=== PATIENT | female | born 1960 | race Caucasian/White ===

== ENCOUNTER 2017-02-10 11:19 | Inpatient (IN) | payer OTHER ==
[2017-02-10 12:21] VITALS: BMI 23.3
--- NOTE | 2017-02-10 14:04 | HP ---
COWS - Scale Resting Pulse: 0= [place] 80 or Below Sweatin=Flushed/Facial Moisture Restless Observation: 3= Extraneous Movement Pupil Size: 2= Moderately Dilated Bone or Joint Aches: 2= Severe Diffuse Aches Runny Nose/ Eye Tearin= Runny Nose/Eyes GI Upset > 30mins: 3= Vomiting/Diarrhea Tremor Observation: 2= Slight Tremor Visible Yawning Observation: 1= 1-2x During Session Anxiety or Irritability: 2=Irritable/Anxious Goose Flesh Skin: 0=Smooth Skin COWS Score: 19 CIWA Score - CIWA Score Nausea/Vomitin Muscle Tremors: 3 Anxiety: 3 Agitation: 3 Paroxysmal Sweats: 2 Orientation: 0-Oriented Tacttile Disturbances: 2-Mild Itch/Numbness/Burn Auditory Disturbances: 2-Mild Harshness/Frighten Visual Disturbances: 2-Mild Sensitivity Headache: 2-Mild CIWA-Ar Total Score: 22 Admission ROS BHS - HPI Chief Complaint: i need help to stop using heroin and xanax Allergies/Adverse Reactions: Allergies Allergy/AdvReac Type Severity Reaction Status Date / Time Penicillins Allergy Severe Hives Verified 02/10/17 13:57 History of Present Illness: this 57 years old female with heroin and xanax dpendence,withdrawal symptom, last detox [facility] 12/02 schizoaffective disorder asthma hepatitis c nicotine dependence longest period of sobriety 5 years Exam Limitations: No Limitations - Ebola screening Have you traveled outside of the country in the last 21 days: No Have you been sick,other than usual withdrawal symptoms: No - Review of Systems Constitutional: Chills, Diaphoresis, Loss of Appetite, Malaise, Night Sweats, Changes in sleep, Weakness, Unexplained wgt Loss EENT: reports: Tearing, Nose Congestion Respiratory: reports: No Symptoms reported, Other (asthma) Cardiac: reports: Palpitations GI: reports: Diarrhea, Nausea, Poor Appetite, Vomiting, Abdominal cramping : reports: No Symptoms Reported Musculoskeletal: reports: Back Pain, Joint Pain, Muscle Pain, Joint Stiffness Integumentary: reports: Dryness Endocrine: reports: No Symptoms Reported Hematology: reports: No Symptoms Reported Psychiatric: reports: other (schzoaffective disorder) Patient History - Patient Medical History Hx Anemia: Yes (IRON SUPPLEMENTS IN THE PAST, LAST DOSE FEW MONTHS AGO) Hx Asthma: Yes (ON MDI) Hx Chronic Obstructive Pulmonary Disease (COPD): No Hx Cancer: No Hx Cardiac Disorders: No Hx Congestive Heart Failure: No Hx Hypertension: No Hx Hypercholesterolemia: No Hx Pacemaker: No HX Cerebrovascular Accident: No Hx Seizures: No Hx Dementia: No Hx Diabetes: No Hx Gastrointestinal Disorders: No Hx Liver Disease: No Hx Genitourinary Disorders: No Hx Sexually Transmitted Disorders: No Hx Renal Disease (ESRD): No Hx Thyroid Disease: No Hx Human Immunodeficiency Virus (HIV): No (NEGATIVE HX) Hx Hepatitis C: Yes (under the care of pmd) Hx Depression: Yes Hx Suicide Attempt: No (denies) Hx Bipolar Disorder: No Hx Schizophrenia: Yes Other Medical History: no suicidal,no homicidal - Patient Surgical History Past Surgical History: Yes Hx Neurologic Surgery: No Hx Cataract Extraction: No Hx Cardiac Surgery: No Hx Lung Surgery: No Hx Breast Surgery: No Hx Breast Biopsy: No Hx Abdominal Surgery: No Hx Appendectomy: No Hx Cholecystectomy: No Hx Genitourinary Surgery: No Hx Section: Yes (x 1987) Hx Orthopedic Surgery: No Hx Hysterectomy: No Other Surgical History: surgery for bunion of right foot in 2008 Anesthesia Reaction: No - PPD History Previous Implant?: Yes Documented Results: Negative w/proof Implanted On Prior R Admission?: Yes Date: 04/13/16 Results: 0 mm PPD to be Administered?: No - Reproductive History Patient is a Female of Child Bearing Age (11 -55 yrs old): Yes Last Menstrual Period: 05/30/13 Patient : No - Smoking Cessation Smoking history: Current every day smoker Have you smoked in the past 12 months: Yes Aproximately how many cigarettes per day: 6 Hx Chewing Tobacco Use: No Initiated information on smoking cessation: Yes 'Breaking Loose' booklet given: 02/10/17 - Substance & Tx. History Hx Alcohol Use: No Hx Substance Use: Yes Substance Use Type: Heroin, Tranquilizers Hx Substance Use Treatment: Yes (last 12/02 [facility]) Family Disease History - Family Disease History Family Disease History: Diabetes: Mother (CANCER, L[place]MPHOMA, ), [place]: Mother Admission Physical Exam BHS - Vital Signs Vital Signs: Vital Signs - 24 hr 02/10/17 12:17 Temperature 97.6 F Pulse Rate 63 Respiratory 18 Rate Blood Pressure 108/72 - Physical General Appearance: Yes: Moderate Distress, Tremorous, Irritable, Sweating, Anxious HEENTM: Yes: Within Normal Limits, Normal ENT Inspection, Pharynx Normal, Nasal Congestion, Rhinorrhea Respiratory: Yes: No Respiratory Distress, Wheezing Neck: Yes: Within Normal Limits, Supple, Trachea in good position Breast: Yes: Breast Exam Deferred Cardiology: Yes: Within Normal Limits, Regular Rhythm, Regular Rate, S1, S2 Abdominal: Yes: Within Normal Limits, Normal Bowel Sounds, Non Tender, Flat, Soft Genitourinary: Yes: Within Normal Limits Back: Yes: Muscle Spasm Musculoskeletal: Yes: Within Normal Limits, Back pain, Joint Stiffness, Muscle Pain Extremities: Yes: Within Normal Limits, Normal Range of Motion, Tremors Neurological: Yes: 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 intact, Alert, Motor Strength 5/5 Integumentary: Yes: Dry Lymphatic: Yes: Within Normal Limits - Diagnostic (1) Nicotine dependence Current Visit: No Status: Acute Qualifiers: Nicotine product type: cigarettes Substance use status: uncomplicated Qualified Code(s): F17.210 - Nicotine dependence, cigarettes, uncomplicated (2) Opioid dependence with withdrawal Current Visit: No Status: Acute (3) Schizoaffective disorder Current Visit: No Status: Acute Comment: ZYPREX (4) Bronchial asthma Current Visit: No Status: Chronic Qualifiers: Asthma severity: unspecified severity Asthma complication type: uncomplicated Qualified Code(s): J45.909 - Unspecified asthma, uncomplicated (5) Hepatitis C carrier Current Visit: No Status: Chronic (6) Uncomplicated sedative, hypnotic, or anxiolytic withdrawal Current Visit: Yes Status: Acute (7) Weight loss Current Visit: Yes Status: Acute (8) Anemia Current Visit: Yes Status: Acute Cleared for Admission [facility] - Detox or Rehab [facility] Level of Care: Medically Managed [facility] Breath Alcohol Content Breath Alcohol Content: 0 Urine Pregancy Test - Result Urine Test Results: Negative- NO Line Present Urine Drug Screen - Results Drug Screen Negative: No Urine Drug Screen Results: RUBÉN-Cocaine, OPI-Opiates, BZO-Benzodiazepines, MTD- Methadone
[2017-02-10] MEDS ORDERED: MAGNESIUM HYDROX 2400MG/30ML ORAL SUSPENSION 30 ML CUP PO PRN (14:14)
[2017-02-10] MEDS ORDERED: MAG HYDROX/AL HYDROX/SIMETH 30 ML UNIT-DOSE CUP PO PRN (14:14)
[2017-02-10] MEDS ORDERED: diphenhydrAMINE HCL 50 MG CAPSULE PO PRN (14:14)
[2017-02-10] MEDS ORDERED: P-EPHED 60MG/TRIPROLIDI 2.5MG TABLET PO PRN (14:14)
[2017-02-10] MEDS ORDERED: IBUPROFEN 400 MG TABLET (FP) PO PRN (14:14)
[2017-02-10] MEDS ORDERED: hydrOXYzine PAMOATE 25 MG CAPSULE (FP) PO PRN (14:14)
[2017-02-10] MEDS ORDERED: ACETAMINOPHEN 325 MG TABLET (FP) PO PRN (14:14)
[2017-02-10] MEDS ORDERED: MAGNESIUM CITRATE 300 ML BOTTLE PO PRN (14:14)
[2017-02-10] MEDS ORDERED: LOPERAMIDE HCL 2 MG CAPSULE PO PRN (14:14)
[2017-02-10] MEDS ORDERED: MENTHOL/PHENOL 1 EACH UD MM PRN (14:14)
[2017-02-10] MEDS ORDERED: ALBUTEROL SO4 6.7 GM HFA INHALER IH PRN (14:18)
[2017-02-10] MEDS ORDERED: diazePAM 5 MG TABLET PO ONE (15:03)
[2017-02-10] MEDS ORDERED: METHADONE HCL 10 MG TABLET (FOR DETOX USE ONLY) PO ONE ×2 (15:05→23:00)
[2017-02-10] MEDS: NICOTINE 7 MG/24 HOURS TOPICAL PATCH TD SCH (15:18)
--- NOTE | 2017-02-10 15:57 | EKG ---
Test Reason : Blood Pressure : / mmHG Vent. Rate : 058 BPM Atrial Rate : 058 BPM P-R Int : 156 ms QRS Dur : 084 ms QT Int : 436 ms P-R-T Axes : 069 063 060 degrees QTc Int : 428 ms SINUS BRADYCARDIA OTHERWISE NORMAL ECG NO PREVIOUS ECGS AVAILABLE Confirmed by TEGAN BOWMAN MD ([id number]) on 02/10/2017 3:57:00 PM Referred By: Confirmed By:TEGAN BOWMAN MD
[2017-02-10 19:26] LABS: HIV 1 & 2 AB NEGATIVE; HIV 1 AGp24 NEGATIVE
[2017-02-10] MEDS: diazePAM 5 MG TABLET PO PRN (19:41)
[2017-02-10 20:28] LABS: URINE APPEARANCE SLCLOUDY; URINE BILIRUBIN NEGATIVE (NEGATIVE); URINE BLOOD NEGATIVE (NEGATIVE); URINE COLOR YELLOW; URINE GLUCOSE (UA) NEGATIVE (NEGATIVE); URINE KETONE NEGATIVE (NEGATIVE); URINE LEUK ESTERASE NEGATIVE (NEGATIVE); URINE NITRITE NEGATIVE (NEGATIVE); URINE PROTEIN NEGATIVE (NEGATIVE); URINE UROBILINOGEN NEGATIVE E.U./dl (0.2-1.0)
[2017-02-10] MEDS: BUDESONIDE/FORMETEROL FUMARATE 160/4.5 mcg INHALER IH SCH (22:35)
[2017-02-10] MEDS: diazePAM 5 MG TABLET PO SCH (22:35)
[2017-02-10] MEDS: THIAMINE HCL 100 MG TABLET (FP) PO SCH (22:36)
[2017-02-11] MEDS: diazePAM 5 MG TABLET PO SCH ×3 (06:42→22:38)
[2017-02-11 09:46] LABS: MCH 29.2 pg (25.7-33.7); MCHC 33.2 g/dl (32.0-36.0); MEAN CELL VOLUME 88.1 fl (80-96); MEAN PLT VOLUME 10.3 fl (7.5-11.1); PLATELET COUNT 136 K/MM3 (134-434); RDW 14.3 % (11.6-15.6); WHITE BLOOD COUNT 5.5 K/mm3 (4.0-10.0)
[2017-02-11] MEDS ORDERED: METHADONE HCL 10 MG TABLET (FOR DETOX USE ONLY) PO SCH (10:00)
[2017-02-11] MEDS: guaiFENesin/D-METHORPHAN HB 10 ML UNIT-DOSE CUPS PO PRN (10:39)
[2017-02-11] MEDS: PRENATAL VITAMINS W/ FOLIC ACID TABLET (FP) PO SCH (10:40)
[2017-02-11] MEDS: diazePAM 5 MG TABLET PO PRN ×2 (10:40→18:31)
[2017-02-11] MEDS: NICOTINE 7 MG/24 HOURS TOPICAL PATCH TD SCH (10:40)
[2017-02-11] MEDS: BUDESONIDE/FORMETEROL FUMARATE 160/4.5 mcg INHALER IH SCH ×2 (10:40→22:31)
[2017-02-11 10:53] LABS: ALK PHOS 87 U/L (45-117); ANION GAP 9 (8-16); BILIRUBIN,TOTAL 0.4 mg/dL (0.2-1.0); CALCIUM 8.8 mg/dL (8.5-10.1); CO2 30 mmol/L (21-32); CREATININE 0.6 mg/dL (0.55-1.02); GLUCOSE,RANDOM 81 mg/dL (74-106); SGOT/AST 16 U/L (15-37); SGPT/ALT 17 U/L (12-78)
--- NOTE | 2017-02-11 12:31 | PN ---
S CIWA - CIWA Score Nausea/Vomitin Muscle Tremors: 3 Anxiety: 3 Agitation: 2 Paroxysmal Sweats: 3 Orientation: 0-Oriented Tacttile Disturbances: 2-Mild Itch/Numbness/Burn Auditory Disturbances: 0-None Visual Disturbances: 0-None Headache: 0-None Present CIWA-Ar Total Score: 15 BHS COWS - Scale Resting Pulse: 1= [place] 81-100 Sweatin=Flushed/Facial Moisture Restless Observation: 1= Difficult to Sit Still Pupil Size: 1= Pupils >than Normal Bone or Joint Aches: 2= Severe Diffuse Aches Runny Nose/ Eye Tearin= Nasal Congestion GI Upset > 30mins: 1= Stomach Cramp Tremor Observation of Outstretched Hands: 2= Slight Tremor Visible Yawning Observation: 1= 1-2x During Session Anxiety or Irritability: 2=Irritable/Anxious Goose Flesh Skin: 0=Smooth Skin COWS Score: 14 BHS Progress Note (SOAP) Subjective: interrupterd sleep, sweats, cough Objective: 02/11/17 12:30 Vital Signs Temperature 97.7 F 02/11/17 10:00 Pulse Rate 68 02/11/17 10:00 Respiratory Rate 18 02/11/17 10:00 Blood Pressure 104/62 02/11/17 10:00 O2 Sat by Pulse Oximetry (%) Laboratory Tests 02/10/17 02/10/17 02/11/17 13:00 20:19 06:20 WBC 5.5 RBC 4.58 Hgb 13.4 Hct 40.3 MCV 88.1 MCHC 33.2 RDW 14.3 Plt Count 136 MPV 10.3 Sodium Potassium Chloride Carbon Dioxide Anion Gap BUN Creatinine Creat Clearance w eGFR Random Glucose Calcium Total Bilirubin AST ALT Alkaline Phosphatase Total Protein Albumin Urine Color Yellow Urine Appearance Slcloudy Urine pH 5.0 Ur Specific [place] 1.023 Urine Protein Negative Urine Glucose (UA) Negative Urine Ketones Negative Urine Blood Negative Urine Nitrite Negative Urine Bilirubin Negative Urine Urobilinogen Negative Ur Leukocyte Esterase Negative RPR Titer HIV 1&2 Antibody Screen Negative HIV P24 Antigen Negative 02/11/17 02/11/17 06:20 06:20 WBC RBC Hgb Hct MCV MCHC RDW Plt Count MPV Sodium 143 Potassium 4.0 Chloride 104 Carbon Dioxide 30 Anion Gap 9 BUN 19 H Creatinine 0.6 Creat Clearance w eGFR > 60 Random Glucose 81 Calcium 8.8 Total Bilirubin 0.4 D AST 16 D ALT 17 Alkaline Phosphatase 87 Total Protein 7.0 Albumin 4.0 Urine Color Urine Appearance Urine pH Ur Specific [place] Urine Protein Urine Glucose (UA) Urine Ketones Urine Blood Urine Nitrite Urine Bilirubin Urine Urobilinogen Ur Leukocyte Esterase RPR Titer Nonreactive HIV 1&2 Antibody Screen HIV P24 Antigen pt aox3 in nad lying in bed + cough Assessment: 02/11/17 12:30 withdrawal sx's uri 03/26/17 17:24 Plan: cont. detox increase fluids robitussin dm
--- NOTE | 2017-02-11 15:02 | CONSULT ---
[facility] Psychiatric Consult - Data Date of interview: 02/11/17 Admission source: [facility] Identifying data: Another admission to [facility] for this 57 y/o female seeking detox treatment on for opioid and xanax dependence.Patient is ,a mother of one,homeless,unemployed and supported on SSI benefits. Substance Abuse History: - Smoking Cessation. Smoking history: Current every day smoker. Have you smoked in the past 12 months: Yes. Aproximately how many cigarettes per day: 6. Hx Chewing Tobacco Use: No. Initiated information on smoking cessation: Yes. 'Breaking Loose' booklet given: 02/10/17. - Substance & Tx. History. Hx Alcohol Use: No. Hx Substance Use: Yes. Substance Use Type : Heroin, Tranquilizers. Hx Substance Use Treatment: Yes (last 12/02 [facility]) Medical History: Anemia,hepatitis C,bronchial asthma and a history of bunionectomy in 2008. Psychiatric History: Patient presents with a 12-year history of psychiatric illness.Initially diagnosed with Schizophrenia until recent revison of diagnosis to Schizoaffective Disorder.Currently prescribed risperdal 2 mg/hs.Ms Jacobs is followed at the [facility] mental health clinic in [facility].History of multiple psychiatric hospitalizations ([facility], [facility]).No reported history of suicide attempts. Physical/Sexual Abuse/Trauma History: Patient denies. Additional Comment: Urine Drug Screen Results: RUBÉN-Cocaine, OPI-Opiates, BZO- Benzodiazepines, MTD-Methadone.Noted. Mental Status Exam - Mental Status Exam Alert and Oriented to: Time, Place, Person Cognitive Function: Good Patient Appearance: Well Groomed Mood: Hopeful, Euthymic Affect: Appropriate, Normal Range Patient Behavior: Appropriate, Cooperative Speech Pattern: Clear Voice Loudness: Normal Thought Process: Goal Oriented Thought Disorder: Not Present Hallucinations: Denies Suicidal Ideation: Denies Homicidal Ideation: Denies Insight/Judgement: Poor Sleep: Fair Appetite: Good Muscle strength/Tone: Normal Gait/Station: Normal Psychiatric Findings - Problem List ([place] 1, 2,3) (1) Uncomplicated sedative, hypnotic, or anxiolytic withdrawal Current Visit: Yes Status: Acute (2) Opioid dependence with withdrawal Current Visit: Yes Status: Acute (3) Nicotine dependence Current Visit: Yes Status: Acute Qualifiers: Nicotine product type: cigarettes Substance use status: uncomplicated Qualified Code(s): F17.210 - Nicotine dependence, cigarettes, uncomplicated (4) Drug-induced mood disorder Current Visit: Yes Status: Acute (5) Schizoaffective disorder Current Visit: Yes Status: Chronic Comment: ZYPREX (6) Anemia Current Visit: Yes Status: Chronic (7) Bronchial asthma Current Visit: Yes Status: Chronic Qualifiers: Asthma severity: unspecified severity Asthma complication type: uncomplicated Qualified Code(s): J45.909 - Unspecified asthma, uncomplicated (8) GERD (gastroesophageal reflux disease) Current Visit: Yes Status: Chronic Qualifiers: Esophagitis presence: without esophagitis Qualified Code(s): K21.9 - Gastro-esophageal reflux disease without esophagitis (9) Hepatitis C carrier Current Visit: Yes Status: Chronic - Initial Treatment Plan Initial Treatment Plan: Psychoeducation.Detoxification.Risperdal 2 mg po hs.Side effects/benefits discussed with the patient.She agrees with this careplan.Observation.
[2017-02-11] MEDS: THIAMINE HCL 100 MG TABLET (FP) PO SCH (22:31)
[2017-02-11] MEDS: risperiDONE 2 MG TABLET PO SCH (22:31)
--- NOTE | 2017-02-12 10:11 | PN ---
[facility] CIWA - CIWA Score Nausea/Vomitin-No Nausea/No Vomiting Muscle Tremors: 3 Anxiety: 3 Agitation: 3 Paroxysmal Sweats: 3 Orientation: 0-Oriented Tacttile Disturbances: 0-None Auditory Disturbances: 0-None Visual Disturbances: 0-None Headache: 0-None Present CIWA-Ar Total Score: 12 BHS COWS - Scale Resting Pulse: 0= [place] 80 or Below Sweatin= Chills/Flushing Restless Observation: 0= Sits Still Pupil Size: 0= Normal to Room Light Bone or Joint Aches: 1= Mild Discomfort Runny Nose/ Eye Tearin= Nasal Congestion GI Upset > 30mins: 1= Stomach Cramp Tremor Observation of Outstretched Hands: 2= Slight Tremor Visible Yawning Observation: 2= >3x During Session Anxiety or Irritability: 2=Irritable/Anxious Goose Flesh Skin: 0=Smooth Skin COWS Score: 10 S Progress Note (SOAP) Subjective: sweats interrupted sleep agitation Objective: 02/12/17 10:13 Vital Signs Temperature 97.5 F L 02/12/17 06:51 Pulse Rate 77 02/12/17 06:51 Respiratory Rate 18 02/12/17 06:51 Blood Pressure 122/79 02/12/17 06:51 O2 Sat by Pulse Oximetry (%) Laboratory Tests 02/10/17 02/10/17 02/11/17 13:00 20:19 06:20 WBC 5.5 RBC 4.58 Hgb 13.4 Hct 40.3 MCV 88.1 MCHC 33.2 RDW 14.3 Plt Count 136 MPV 10.3 Sodium Potassium Chloride Carbon Dioxide Anion Gap BUN Creatinine Creat Clearance w eGFR Random Glucose Calcium Total Bilirubin AST ALT Alkaline Phosphatase Total Protein Albumin Urine Color Yellow Urine Appearance Slcloudy Urine pH 5.0 Ur Specific [place] 1.023 Urine Protein Negative Urine Glucose (UA) Negative Urine Ketones Negative Urine Blood Negative Urine Nitrite Negative Urine Bilirubin Negative Urine Urobilinogen Negative Ur Leukocyte Esterase Negative RPR Titer HIV 1&2 Antibody Screen Negative HIV P24 Antigen Negative 02/11/17 02/11/17 06:20 06:20 WBC RBC Hgb Hct MCV MCHC RDW Plt Count MPV Sodium 143 Potassium 4.0 Chloride 104 Carbon Dioxide 30 Anion Gap 9 BUN 19 H Creatinine 0.6 Creat Clearance w eGFR > 60 Random Glucose 81 Calcium 8.8 Total Bilirubin 0.4 D AST 16 D ALT 17 Alkaline Phosphatase 87 Total Protein 7.0 Albumin 4.0 Urine Color Urine Appearance Urine pH Ur Specific [place] Urine Protein Urine Glucose (UA) Urine Ketones Urine Blood Urine Nitrite Urine Bilirubin Urine Urobilinogen Ur Leukocyte Esterase RPR Titer Nonreactive HIV 1&2 Antibody Screen HIV P24 Antigen awake/alert ambulating no acute distress Assessment: 02/12/17 10:13 withdrawal sx Plan: continue detox increase fluids
[2017-02-12] MEDS: diazePAM 5 MG TABLET PO SCH ×2 (10:28→22:34)
[2017-02-12] MEDS: PRENATAL VITAMINS W/ FOLIC ACID TABLET (FP) PO SCH (10:28)
[2017-02-12] MEDS: NICOTINE 7 MG/24 HOURS TOPICAL PATCH TD SCH (10:28)
[2017-02-12] MEDS: METHADONE HCL 5 MG TABLET (FOR DETOX USE ONLY) PO SCH (10:28)
[2017-02-12] MEDS: BUDESONIDE/FORMETEROL FUMARATE 160/4.5 mcg INHALER IH SCH ×2 (10:30→22:34)
[2017-02-12] MEDS: guaiFENesin/D-METHORPHAN HB 10 ML UNIT-DOSE CUPS PO PRN ×2 (12:15→22:36)
[2017-02-12] MEDS: diazePAM 5 MG TABLET PO PRN ×2 (12:34→17:56)
[2017-02-12] MEDS: risperiDONE 2 MG TABLET PO SCH (22:34)
[2017-02-12] MEDS: THIAMINE HCL 100 MG TABLET (FP) PO SCH (22:34)
[2017-02-13] MEDS: diazePAM 5 MG TABLET PO PRN (06:05)
--- NOTE | 2017-02-13 10:20 | PN ---
BHS Progress Note (SOAP) Subjective: sweats interrupted sleep tired Objective: 02/13/17 10:20 Vital Signs Temp 97.0 F L 02/13/17 06:00 Pulse 53 L 02/13/17 06:00 Resp 18 02/13/17 06:00 BP 111/65 02/13/17 06:00 Pulse Ox awake/alert ambulating no acute distress Assessment: 02/13/17 10:20 withdrawal sx Plan: continue detox increase fluids
[2017-02-13] MEDS: PRENATAL VITAMINS W/ FOLIC ACID TABLET (FP) PO SCH (10:45)
[2017-02-13] MEDS: METHADONE HCL 5 MG TABLET (FOR DETOX USE ONLY) PO SCH (10:45)
[2017-02-13] MEDS: diazePAM 5 MG TABLET PO SCH ×2 (10:45→22:26)
[2017-02-13] MEDS: BUDESONIDE/FORMETEROL FUMARATE 160/4.5 mcg INHALER IH SCH ×2 (10:45→22:25)
[2017-02-13] MEDS: NICOTINE 7 MG/24 HOURS TOPICAL PATCH TD SCH (10:47)
[2017-02-13] MEDS: guaiFENesin/D-METHORPHAN HB 10 ML UNIT-DOSE CUPS PO PRN (11:25)
[2017-02-13] MEDS ORDERED: diazePAM 5 MG TABLET PO ONE (15:00)
[2017-02-13] MEDS: risperiDONE 2 MG TABLET PO SCH (22:25)
[2017-02-13] MEDS: THIAMINE HCL 100 MG TABLET (FP) PO SCH (22:26)
[2017-02-14] MEDS ORDERED: METHADONE HCL 10 MG TABLET (FOR DETOX USE ONLY) PO SCH (10:00)
[2017-02-14] MEDS ORDERED: diazePAM 5 MG TABLET PO SCH (10:00)
[2017-02-14] MEDS: PRENATAL VITAMINS W/ FOLIC ACID TABLET (FP) PO SCH (10:41)
[2017-02-14] MEDS: NICOTINE 7 MG/24 HOURS TOPICAL PATCH TD SCH (10:42)
[2017-02-14] MEDS: BUDESONIDE/FORMETEROL FUMARATE 160/4.5 mcg INHALER IH SCH ×2 (10:42→22:22)
[2017-02-14] MEDS: guaiFENesin/D-METHORPHAN HB 10 ML UNIT-DOSE CUPS PO PRN (10:43)
--- NOTE | 2017-02-14 13:18 | PN ---
BHS Progress Note (SOAP) Subjective: ALERT,IRRITABLE,ANXIOUS,INTERRUPTED SLEEP,PAIN IN THE BODY Objective: 02/14/17 13:17 Vital Signs Temperature 97.9 F 02/14/17 10:01 Pulse Rate 80 02/14/17 10:01 Respiratory Rate 16 02/14/17 10:01 Blood Pressure 109/68 02/14/17 10:01 O2 Sat by Pulse Oximetry (%) Assessment: 02/14/17 13:17 WITHDRAWAL SYMPTOM Plan: CONTINUE DETOX
[2017-02-14] MEDS: THIAMINE HCL 100 MG TABLET (FP) PO SCH (22:21)
[2017-02-14] MEDS: risperiDONE 2 MG TABLET PO SCH (22:22)
[2017-02-15] MEDS ORDERED: METHADONE HCL 5 MG TABLET (FOR DETOX USE ONLY) PO SCH (06:00)
--- NOTE | 2017-02-15 08:14 | PN ---
[facility] Progress Note (SOAP) Subjective: ALERT,COUGHING,YELLOWISH MUCOUS, Objective: 02/15/17 08:11 Vital Signs Temperature 97.0 F L 02/15/17 06:14 Pulse Rate 67 02/15/17 06:14 Respiratory Rate 18 02/15/17 06:14 Blood Pressure 100/68 02/15/17 06:14 O2 Sat by Pulse Oximetry (%) Assessment: 02/15/17 08:11 LUNG MILD WHEEZING BRONCHITIS Plan: LEVAQUIN 500 JEYSON PO DAILY,ALBUTEROL INHALER PRN,TRANSFER TO REHAB [facility] FOR CONTINUING OF CARE
[2017-02-15] MEDS ORDERED: LEVOFLOXACIN 500 MG TABLET (FP) PO SCH (10:00)
[2017-02-15] MEDS: PRENATAL VITAMINS W/ FOLIC ACID TABLET (FP) PO SCH (10:42)
[2017-02-15] MEDS: BUDESONIDE/FORMETEROL FUMARATE 160/4.5 mcg INHALER IH SCH (10:42)
[2017-02-15] MEDS: NICOTINE 7 MG/24 HOURS TOPICAL PATCH TD SCH (10:42)
[2017-02-15 10:52] VITALS: BP 110/73; PULSE 78; TEMP 97.9
--- NOTE | 2017-02-15 11:14 | DS ---
[facility] Detox Discharge Summary Admission Date: 02/10/17 Discharge Date: 02/15/17 - History Present History: Opioid Dependence, Sedative Dependence Additional Comments: TRANSFER TO REHAB FOR CONTINUING OF CARE Pertinent Past History: ASTHMA SCHIZOAFFECTIV EDISORDER HEPATITIS C WEIGHT LOSS BRONCHITIS ANEMIA BY HISTORY - Physical Exam Results Vital Signs: Vital Signs Temperature 97.9 F 02/15/17 10:52 Pulse Rate 78 02/15/17 10:52 Respiratory Rate 18 02/15/17 10:52 Blood Pressure 110/73 02/15/17 10:52 O2 Sat by Pulse Oximetry (%) Pertinent Admission Physical Exam Findings: WITHDRAWAL SYMPTOM - Treatment Hospital Course: Detox Protocol Followed, Detoxed Safely, Responded well, Discharged Condition Good - Medication Discharge Medications: Ambulatory Orders Risperidone [Risperdal] 2 mg PO DAILY 07/04/16 Albuterol Sulfate Inhaler - [Ventolin HFA Inhaler -] 2 inh IH Q4H PRN #1 cartridge 07/09/16 Budesonide/Formeterol Fumarate [SYMBICORT 160/4.5mcg -] 1 puff IH BID #1 cartridge 07/09/16 Risperidone [Risperdal] 2 mg PO HS #30 tablet 02/11/17 - Diagnosis (1) Nicotine dependence Current Visit: Yes Status: Acute Qualifiers: Nicotine product type: cigarettes Substance use status: uncomplicated Qualified Code(s): F17.210 - Nicotine dependence, cigarettes, uncomplicated (2) Opioid dependence with withdrawal Current Visit: Yes Status: Acute (3) Schizoaffective disorder Current Visit: Yes Status: Chronic (4) Bronchial asthma Current Visit: Yes Status: Chronic Qualifiers: Asthma severity: unspecified severity Asthma complication type: uncomplicated Qualified Code(s): J45.909 - Unspecified asthma, uncomplicated (5) Hepatitis C carrier Current Visit: Yes Status: Chronic (6) Uncomplicated sedative, hypnotic, or anxiolytic withdrawal Current Visit: Yes Status: Acute (7) Weight loss Current Visit: Yes Status: Acute (8) Anemia Current Visit: Yes Status: Chronic - AMA Did Patient Leave Against Medical Advice: No
--- NOTE | 2017-02-15 14:06 | PN ---
S Progress Note Note: patient changed her mind did not want to go to rehab,discharge home,follow up with after care program as arrangement and pmd for medical psoblemhas all medications at home
== END 2017-02-15 01:35 | disposition home or self-care (01) | DRG 897 ==
LOC: YASAS 11:19 → Y6N 14:19
PROVIDERS: ADMIT Internal Medicine; ATTEND Internal Medicine
PROC: HZ2ZZZZ Detoxification Services for Substance Abuse Treatment (ICD-10-PCS; principal; 2017-02-10)
DX: F11.23 Opioid dependence with withdrawal (principal); F13.230 Sedative, hypnotic or anxiolytic dependence with withdrawal, uncomplicated; F17.210 Nicotine dependence, cigarettes, uncomplicated; F25.9 Schizoaffective disorder, unspecified; F19.24 Other psychoactive substance dependence with psychoactive substance-induced mood disorder; J40 Bronchitis, not specified as acute or chronic; J45.909 Unspecified asthma, uncomplicated; J06.9 Acute upper respiratory infection, unspecified; B18.2 Chronic viral hepatitis C; D64.9 Anemia, unspecified; Z87.898 Personal history of other specified conditions
CPT/HCPCS: 36415; 80053; 81003; 85027; 86593; 87389; 93005; 93010

== ENCOUNTER 2020-08-21 11:56 | Inpatient (IN) | payer OTHER ==
--- NOTE | 2020-08-21 11:55 | BHS.RME ---
Substance Use & Tx History - Substance Use History Heroin Substance amount: 4-5 bags Frequency of use: Daily Substance route: Inhalation (ex: sniffing or snorting) Date of Last Use: 08/21/20 (started age 28) Xanax Substance amount: 2mg - 2 tabs Frequency of use: Less than 3 times per week Substance route: Oral Date of Last Use: 08/21/20 (started age 39) Nicotine Substance amount: 4 ciggs Frequency of use: Daily Substance route: Smoking Date of Last Use: 08/21/20 (started age 18) Physical/Psych/Mental Status - Behavior General Behavior: Increased activity (restlessness, agitation) Eye Contact: Normal - Cooperativeness Cooperativeness: Cooperative - Thinking Thought Processes: Tight, Logical, Goal Directed - Physical Health Problems Is patient presently having any pain?: No Does patient presently have any injuries (include location): No Does patient currently have a fever: No Is patient : No COWS - Scale Resting Pulse: 0= [place] 80 or Below Sweatin= No chills or Flushing Restless Observation: 1= Difficult to Sit Still Pupil Size: 0= Normal to Room Light Bone or Joint Aches: 0= None Runny Nose/ Eye Tearin= None GI Upset > 30mins: 0= None Tremor Observation: 0= None Yawning Observation: 0= None Anxiety or Irritability: 0= None Goose Flesh Skin: 0=Smooth Skin COWS Score: 1 CIWA Nausea/Vomitin-Mild Nausea/No Vomiting Muscle Tremors: 2 Anxiety: 4-Mod. Anxious/Guarded Agitation: 4-Moderately Restless Paroxysmal Sweats: 1-Minimal Palms Moist Orientation: 0-Oriented Tacttile Disturbances: 0-None Auditory Disturbances: 0-None Visual Disturbances: 0-None Headache: 0-None Present CIWA-Ar Total Score: 12
--- NOTE | 2020-08-21 13:35 | HP ---
"COWS - Scale Resting Pulse: 0= OK 80 or Below Sweatin= No chills or Flushing Restless Observation: 1= Difficult to Sit Still Pupil Size: 0= Normal to Room Light Bone or Joint Aches: 0= None Runny Nose/ Eye Tearin= None GI Upset > 30mins: 0= None Tremor Observation: 0= None Yawning Observation: 0= None Anxiety or Irritability: 0= None Goose Flesh Skin: 0=Smooth Skin COWS Score: 1 CIWA Score Nausea/Vomitin-Mild Nausea/No Vomiting Muscle Tremors: 2 Anxiety: 4-Mod. Anxious/Guarded Agitation: 4-Moderately Restless Paroxysmal Sweats: 1-Minimal Palms Moist Orientation: 0-Oriented Tacttile Disturbances: 0-None Auditory Disturbances: 0-None Visual Disturbances: 0-None Headache: 0-None Present CIWA-Ar Total Score: 12 - Admission Criteria OASAS Guidelines: Admission for Medically Managed Detox: Requires at least one of the followin. CIWA greater than 12 2. Seizures within the past 24 hours 3. Delirium tremens within the past 24 hours 4. Hallucinations within the past 24 hours 5. Acute intervention needed for co occurring medical disorder 6. Acute intervention needed for co occurring psychiatric disorder 7. Severe withdrawal that cannot be handled at a lower level of care (continued vomiting, continued diarrhea, abnormal vital signs) requiring intravenous medication and/or fluids 8. Admitting History and Physical - Admission Chief Complaint: Ms. Jacobs is a 60 yo woman who presents to [facility] reque sting detox from benzodiazepine use disorder. History of Present Illness: Ms. Jacobs is a 60 yo woman who presents to [facility] requesting detox from benzodiazepine use disorder. Originally she requested being detoxed from methadone. We explained that we would not take her off her methadone and at that point she asked to be admitted for benzo use. She was last at [facility] in January of this year. At that time she completed detox with a methadone taper. Since then she has been started on methadone maintenance. PMH: Asthma, Afib, GERD, right second toe fracture PSH: C section 1987, right foot Psych: depression, no SI/SA SOC: homeless Legal: none Substance Use History Heroin Substance amount: 4-5 bags Frequency of use: Daily Substance route: Inhalation (ex: sniffing or snorting) Date of Last Use: 08/21/20 (started age 28) OD x 2, last was January 2020, No narcan at home Xanax Substance amount: 2mg - 2 tabs Frequency of use: Less than 3 times per week Substance route: Oral Date of Last Use: 08/21/20 (started age 39) No hx of seizures Buys Xanax on street Nicotine Substance amount: 4 ciggs Frequency of use: Daily Substance route: Smoking Date of Last Use: 08/21/20 (started age 18) Methadone maintenance: 25 mg daily, states she was medicated today, program name: MARIXA Jacobs, 1960 Search Date: 08/21/2020 13:44:05 PM The Drug Utilization Report below displays all of the controlled substance prescriptions, if any, that your patient has filled in the last twelve months. The information displayed on this report is compiled from pharmacy submissions to the Department, and accurately reflects the information as submitted by the pharmacies. This report was requested by: Evelin Mendenhall | Reference #: [id number] There are no results for the search terms that you entered. 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 History of Recent Travel: No Admission [facility] Allergies/Adverse Reactions: Allergies Allergy/AdvReac Type Severity Reaction Status Date / Time Penicillins Allergy Severe Hives Verified 02/03/20 13:10 Exam Limitations: No Limitations - Ebola screening Have you traveled outside of the country in the last 21 days: No Have you been sick,other than usual withdrawal symptoms: No Do you have a fever: No - Review of Systems Constitutional: Changes in sleep (wakes frequently), Other (gained about 30 lbs in the past 6 mos) EENT: reports: Blurred Vision (glasses with her for reading and distance), Other (raspy voice she attributes to carbon monoxide exposure in 2006) Respiratory: reports: Shortness of Breath Cardiac: reports: No Symptoms Reported GI: reports: No Symptoms Reported, Nausea : reports: No Symptoms Reported Musculoskeletal: reports: Joint Pain (bilateral knee pain s/p fall), Other (fell with right foot injury and surgery 2019, ambulates with cane) Integumentary: reports: No Symptoms Reported Neuro: reports: No Symptoms reported Endocrine: reports: No Symptoms Reported Hematology: reports: No Symptoms Reported Psychiatric: reports: Anxious (on Xanax), Depressed Patient History - Patient Medical History Hx Anemia: Yes (IRON SUPPLEMENTS IN THE PAST, LAST DOSE FEW MONTHS AGO) Hx Asthma: Yes (on pumps) Hx Chronic Obstructive Pulmonary Disease (COPD): No Hx Cancer: No Hx Cardiac Disorders: No Hx Congestive Heart Failure: No Hx Hypertension: No Hx Hypercholesterolemia: No Hx Pacemaker: No HX Cerebrovascular Accident: No Hx Seizures: No Hx Dementia: No Hx Diabetes: No Hx Gastrointestinal Disorders: Yes (GERD) Hx Liver Disease: No Hx Genitourinary Disorders: No Hx Sexually Transmitted Disorders: No Hx Renal Disease (ESRD): No Hx Thyroid Disease: No Hx Human Immunodeficiency Virus (HIV): No (NEGATIVE HX) Hx Hepatitis C: Yes (under the care of pmd) Hx Depression: Yes Hx Suicide Attempt: No Hx Bipolar Disorder: No Hx Schizophrenia: Yes (SCHIZOAFFECTIVE D/O) - Patient Surgical History Past Surgical History: Yes Hx Neurologic Surgery: No Hx Cataract Extraction: No Hx Cardiac Surgery: No Hx Lung Surgery: No Hx Breast Surgery: No Hx Breast Biopsy: No Hx Abdominal Surgery: No Hx Appendectomy: No Hx Cholecystectomy: No Hx Genitourinary Surgery: No Hx Section: Yes (x 1 1987) Hx Orthopedic Surgery: No Hx Hysterectomy: No Other Surgical History: surgery for bunion of right foot in 2008 Anesthesia Reaction: No - PPD History Date: 02/05/20 Results: 0 mm - Reproductive History Last Menstrual Period: 05/30/13 - Smoking Cessation Smoking history: Current every day smoker Have you smoked in the past 12 months: Yes Aproximately how many cigarettes per day: 4 Hx Chewing Tobacco Use: No Initiated information on smoking cessation: Yes 'Breaking Loose' booklet given: 08/21/20 Admission Physical Exam BHS - Physical General Appearance: Yes: No Apparent Distress, Nourished, Appropriately Dressed HEENTM: Yes: EOMI, Hearing grossly Normal, Normocephalic, Normal Voice, Other (hoarse quality to voice) Respiratory: Yes: Lungs Clear, No Respiratory Distress, No Accessory Muscle Use Neck: Yes: Within Normal Limits, Supple Breast: Yes: Breast Exam Deferred Cardiology: Yes: Regular Rhythm, Regular Rate Abdominal: Yes: Hernia (small midline below zyphoid) Genitourinary: Yes: Other (deferred) Back: Yes: Normal Inspection Musculoskeletal: Yes: Other (right foot surgical scar over first metatarsal, hyperpigmented in that area) Extremities: Yes: Normal Inspection, Non-Tender Neurological: Yes: Alert, Normal Response Integumentary: Yes: Within Normal Limits - Diagnostic (1) Methadone maintenance therapy patient Current Visit: Yes Status: Acute (2) Gait instability Current Visit: Yes Status: Acute (3) Depression Current Visit: Yes Status: Chronic (4) GERD (gastroesophageal reflux disease) Current Visit: Yes Status: Chronic Qualifiers: Esophagitis presence: without esophagitis Qualified Code(s): K21.9 - Gastro-esophageal reflux disease without esophagitis (5) Nicotine dependence Current Visit: Yes Status: Acute Qualifiers: Nicotine product type: cigarettes Substance use status: uncomplicated Qualified Code(s): F17.210 - Nicotine dependence, cigarettes, uncomplicated (6) Uncomplicated sedative, hypnotic, or anxiolytic withdrawal Current Visit: Yes Status: Acute Cleared for Admission S - Detox or Rehab [facility] Level of Care: Medically Managed Detox Regimen/Protocol: Ativan Breathalyzer - Breathalyzer Breathalyzer: 0 Urine Drug Screen - Test Device Lot number: [id number] Expiration date: 02/21/22 - Control Is test valid?: Yes - Results Urine drug screen results: THC-Marijuana, FEN-Fentanyl, MOP-Opiates, MTD- Methadone, BZO-Benzodiazepines Inpatient Rehab Admission - Rehab Decision to Admit Inpatient rehab admission?: No"
[2020-08-21] MEDS ORDERED: MAGNESIUM CITRATE 300 ML BOTTLE PO PRN (13:50)
[2020-08-21] MEDS ORDERED: BISMUTH SUBSALICYLATE 262 MG/15 ML BTL PO PRN (13:50)
[2020-08-21] MEDS ORDERED: IBUPROFEN 400 MG TABLET (FP) PO PRN (13:50)
[2020-08-21] MEDS ORDERED: METHOCARBAMOL 500 MG TABLET PO PRN (13:50)
[2020-08-21] MEDS ORDERED: ONDANSETRON *ODT* 4 MG TABLET SL PRN (13:50)
[2020-08-21] MEDS ORDERED: MAG HYDROX/AL HYDROX/SIMETH 30 ML UNIT-DOSE CUP PO PRN (13:50)
[2020-08-21] MEDS ORDERED: NICOTINE POLACRILEX 2 MG GUM BUC PRN (13:50)
[2020-08-21] MEDS ORDERED: ACETAMINOPHEN 325 MG TABLET (FP) PO PRN ×2 (13:50)
[2020-08-21] MEDS ORDERED: MENTHOL/PHENOL 1 EACH UD MM PRN (13:50)
[2020-08-21] MEDS ORDERED: MAGNESIUM HYDROX 2400MG/30ML ORAL SUSPENSION 30 ML CUP PO PRN (13:50)
[2020-08-21] MEDS ORDERED: ALBUTEROL SO4 HFA INHALER IH PRN (13:53)
[2020-08-21] MEDS ORDERED: hydrOXYzine PAMOATE 25 MG CAPSULE (FP) PO SCH (14:00)
[2020-08-21 14:08] VITALS: BMI 28.8
--- OUTSIDE RECORDS SUMMARY | 2020-08-21 14:11 | XMS ---
:1960 Author Organization [facility] Care Team Providers Name Role Phone RA DIAZ MD Unavailable Unavailable MD JOSE Unavailable Unavailable Re-disclosure Warning The records that you are about to access may contain information from federally- assisted alcohol or drug abuse programs. If such information is present, then the following federally mandated warning applies: This information has been disclosed to you from records protected by federal confidentiality rules (42 CFR part 2). The federal rules prohibit you from making any further disclosure of this information unless further disclosure is expressly permitted by the written consent of the person to whom it pertains or as otherwise permitted by 42 CFR part 2. A general authorization for the release of medical or other information is NOT sufficient for this purpose. The Federal rules restrict any use of the information to criminally investigate or prosecute any alcohol or drug abuse patient.The records that you are about to access may contain highly sensitive health information, the redisclosure of which is protected by Article 27-F of the [facility] Public Health law. If you continue you may haveaccess to information: Regarding HIV / AIDS; Provided by facilities licensed or operated by the [facility] Office of Mental Health; or Provided by the [facility] Office for People With Developmental Disabilities. If such information is present, then the following [facility] mandated warning applies: This information has been disclosed to you from confidential records which are protected by state law. State law prohibits you from making any further disclosure of this information without the specific written consent of the person to whom it pertains, or as otherwise permitted by law. Any unauthorized further disclosure in violation of state law may result in a fine or snf sentence or both. A general authorization for the release of medical or other information is NOT sufficient authorization for further disclosure. Encounters Encounter Providers Location Date Indications Data Source(s ) Inpatient Attender: RA STV-1D 02/09/2020 [facility] sale[facility] SURBNSHANYANAdmitter 02:47:00 PM EDT Hospital : [facility] - 02/12/2020 10:52:00 PM EDT Patient discharged. Outpatient [facility] 02/09/2020 01:18:00 PM EDT - 020 [facility] 04:49:00 PM EDT Patient discharged. Insurance Providers Payer name Policy type Policy ID Covered Covered republican's Policy P beka / Coverage republican ID relationship to [facility] type mat[facility]ws MEDICARE [id number] SP [id number] 7 MEDICAID [id number] SP [id number] VALUE [id number] SP [id number] 01 OPTIONS-MEDI 1 CARE [place] MEDICARE [id number] SP [id number] SELF PAY 00 Self 00 MEDICAID INP [id number] Self [id number] U REHAB MDM [id number] Self [id number] HIP/EMBLEM 1 (VO) Results ID Date Data Source [id number] 07/30/2020 02:20:00 PM EDT [facility] Name Value Range Interpretation Code Description Data Stacia rce(s) Supporting Document(s ) SARS-CoV-2 [facility] This lab was ordered by [facility] and reported by [facility]. ID Date Data Source [id number] 06/29/2020 01:50:00 PM EDT [facility] Name Value Range Interpretation Description Data Sup porting Code Source(s) Document(s ) SARS [facility] coronavirus 2 RNA [Presence] in Respiratory specimen by DELMIS with probe detection This lab was ordered by [facility] and reported by [facility]. ID Date Data Source [id number] 04/12/2020 02:44:00 PM EDT [facility] Name Value Range Interpretation Code Description Data Stacia rce(s) Supporting Document(s ) SARS-CoV-2 [facility] , RNA This lab was ordered by [address] [place] [address] and reported by [employer]. Procedure Vital Signs ID Date Data Source UNK Name Value Range Interpretation Code Description Data Source(s) Body weight 146 lbs 146 lbs [facility] Diastolic blood 89 mmHg 89 mmHg [facility] Systolic blood 137 mmHg 137 mmHg [facility] Respiratory rate 18 bpm 18 bpm [facility] Heart rate 73 bpm 73 bpm [facility] Body temperature 97[facility]7 [facility] 97[facility]7 [facility] Di[facility] blood 89 mmHg 89 mmHg [facility] Systolic blood 146 mmHg 146 mmHg [facility] Respiratory rate 18 bpm 18 bpm [facility] Heart rate 80 bpm 80 bpm [facility] Body temperature 97.1 Fahrenheit 97.1 [facility] Diastolic blood 82 mmHg 82 mmHg [facility] Systolic blood 148 mmHg 148 mmHg [facility] Respiratory rate 18 bpm 18 bpm [facility] Heart rate 69 bpm 69 bpm [facility] Body temperature 96.8 Fahrenheit 96.8 [facility] ID Date Data Source [id number] 02/12/2020 10:52:29 PM EDT [facility] Name Value Range Interpretation Code Description Data Source(s) Body weight Measured 146 lb 146 lb [facility]
[2020-08-21] MEDS ORDERED: hydrOXYzine PAMOATE 25 MG CAPSULE (FP) PO PRN (14:19)
[2020-08-21 14:44] LABS: HEMATOCRIT 38.4 % (32.4-45.2); MCHC 33.8 g/dl (32.0-36.0); MEAN CELL VOLUME 88.7 fl (80-96); MEAN PLT VOLUME 9.7 fl (7.5-11.1); PLATELET COUNT 178 K/MM3 (134-434); RBC 4.33 M/mm3 (3.60-5.2); RDW 13.8 % (11.6-15.6); WHITE BLOOD COUNT 5.3 K/mm3 (4.0-10.0)
[2020-08-21] MEDS: LORazepam 1 MG TABLET PO PRN (14:53)
[2020-08-21] MEDS: PRENATAL VITAMINS W/ FOLIC ACID TABLET (FP) PO SCH (14:55)
[2020-08-21] MEDS: BUDESONIDE/FORMETEROL FUMARATE 160/4.5 mcg INHALER IH SCH ×2 (14:55→22:27)
[2020-08-21] MEDS: NICOTINE 7 MG/24 HOURS TOPICAL PATCH TD SCH (14:56)
[2020-08-21 15:36] LABS: ALBUMIN 3.6 g/dl (3.4-5.0); BILIRUBIN,TOTAL 0.3 mg/dL (0.2-1); BLOOD UREA NITROGEN 18.1 mg/dL (7-18); CALCIUM 8.3 mg/dL (8.5-10.1); CREATININE 0.6 mg/dL (0.55-1.3); POTASSIUM 3.9 mmol/L (3.5-5.1); TOT PROT 6.7 g/dl (6.4-8.2)
[2020-08-21] MEDS: LORazepam 2 MG TABLET PO SCH ×2 (17:35→22:27)
[2020-08-21] MEDS: THIAMINE HCL 100 MG TABLET (FP) PO SCH (22:27)
[2020-08-21] MEDS: MELATONIN 5 MG TABLETS PO SCH (22:30)
[2020-08-22] MEDS ORDERED: METHADONE HCL 10 MG TABLET ONE (04:48)
[2020-08-22] MEDS ORDERED: METHADONE HCL 5 MG TABLET ONE (04:48)
[2020-08-22] MEDS ORDERED: METHADONE HCL 10 MG TABLET PO SCH (06:00)
[2020-08-22] MEDS: METHADONE 20 MG, METHADONE 5 MG PO SCH (06:21)
[2020-08-22] MEDS: LORazepam 2 MG TABLET PO SCH ×4 (06:22→22:30)
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
[2020-08-22] MEDS: NICOTINE 7 MG/24 HOURS TOPICAL PATCH TD SCH (10:36)
[2020-08-22] MEDS: PRENATAL VITAMINS W/ FOLIC ACID TABLET (FP) PO SCH (10:36)
[2020-08-22] MEDS: BUDESONIDE/FORMETEROL FUMARATE 160/4.5 mcg INHALER IH SCH ×2 (10:36→22:30)
--- NOTE | 2020-08-22 13:32 | PN ---
S CIWA - CIWA Score Nausea/Vomitin-No Nausea/No Vomiting Muscle Tremors: 3 Anxiety: 2 Agitation: 2 Paroxysmal Sweats: 3 Orientation: 0-Oriented Tacttile Disturbances: 0-None Auditory Disturbances: 0-None Visual Disturbances: 0-None Headache: 0-None Present CIWA-Ar Total Score: 10 BHS Progress Note (SOAP) Subjective: sweats shakes interrupted sleep agitation restless headache Objective: 08/22/20 13:33 Vital Signs Temperature 98.8 F 08/22/20 09:04 Pulse Rate 72 08/22/20 09:04 Respiratory Rate 18 08/22/20 09:04 Blood Pressure 123/87 08/22/20 09:04 O2 Sat by Pulse Oximetry (%) 98 08/22/20 09:04 Laboratory Tests 08/21/20 08/21/20 08/21/20 13:00 13:00 13:00 WBC 5.3 RBC 4.33 Hgb 13.0 Hct 38.4 MCV 88.7 MCH 30.0 MCHC 33.8 RDW 13.8 Plt Count 178 MPV 9.7 Sodium 141 Potassium 3.9 Chloride 107 Carbon Dioxide 29 Anion Gap 4 L BUN 18.1 H Creatinine 0.6 Est GFR (CKD-EPI)AfAm 115.63 Est GFR (CKD-EPI)NonAf 99.77 Random Glucose 103 Calcium 8.3 L Total Bilirubin 0.3 AST 14 L ALT 19 Alkaline Phosphatase 76 Total Protein 6.7 Albumin 3.6 Syphilis Serology Non-reactive COVID-19 (DELMIS) 08/21/20 14:00 WBC RBC Hgb Hct MCV MCH MCHC RDW Plt Count MPV Sodium Potassium Chloride Carbon Dioxide Anion Gap BUN Creatinine Est GFR (CKD-EPI)AfAm Est GFR (CKD-EPI)NonAf Random Glucose Calcium Total Bilirubin AST ALT Alkaline Phosphatase Total Protein Albumin Syphilis Serology COVID-19 (DELMIS) Not detected labs noted aaox3 ambulating well with cane no acute distress Assessment: 08/22/20 13:33 withdrawals Plan: continue detox increase fluids tylenol/ motrin prn for EARL
[2020-08-22] MEDS: LORazepam 1 MG TABLET PO PRN (14:11)
[2020-08-22] MEDS: FAMOTIDINE 20 MG TABLET PO SCH (14:11)
[2020-08-22] MEDS: THIAMINE HCL 100 MG TABLET (FP) PO SCH (22:30)
[2020-08-22] MEDS: MELATONIN 5 MG TABLETS PO SCH (22:30)
[2020-08-23] MEDS ORDERED: METHADONE HCL 10 MG TABLET ONE ×2 (04:20→09:24)
[2020-08-23] MEDS ORDERED: METHADONE HCL 5 MG TABLET ONE ×2 (04:21→09:25)
[2020-08-23] MEDS: METHADONE 20 MG, METHADONE 5 MG PO SCH (07:08)
[2020-08-23] MEDS: LORazepam 1 MG TABLET PO SCH ×2 (07:08→10:46)
[2020-08-23] MEDS: BUDESONIDE/FORMETEROL FUMARATE 160/4.5 mcg INHALER IH SCH (10:45)
[2020-08-23] MEDS: PRENATAL VITAMINS W/ FOLIC ACID TABLET (FP) PO SCH (10:47)
[2020-08-23] MEDS: FAMOTIDINE 20 MG TABLET PO SCH (10:47)
[2020-08-23] MEDS: NICOTINE 7 MG/24 HOURS TOPICAL PATCH TD SCH (10:47)
[2020-08-23 11:26] VITALS: BP 127/89; PULSE 71; TEMP 97.7
--- NOTE | 2020-08-23 12:53 | PN ---
S CIWA - CIWA Score Nausea/Vomitin-No Nausea/No Vomiting Muscle Tremors: None Anxiety: 0-No Anxiety, at Ease Agitation: 1-Slight > Activity Paroxysmal Sweats: No Perspiration Orientation: 0-Oriented Tacttile Disturbances: 0-None Auditory Disturbances: 0-None Visual Disturbances: 0-None Headache: 0-None Present CIWA-Ar Total Score: 1 BHS Progress Note (SOAP) Subjective: feeling better Objective: 08/23/20 12:52 Vital Signs Temperature 97.7 F 08/23/20 09:01 Pulse Rate 71 08/23/20 09:01 Respiratory Rate 16 08/23/20 09:01 Blood Pressure 127/89 08/23/20 09:01 O2 Sat by Pulse Oximetry (%) 98 08/23/20 09:01 Laboratory Tests 08/21/20 08/21/20 08/21/20 13:00 13:00 13:00 WBC 5.3 RBC 4.33 Hgb 13.0 Hct 38.4 MCV 88.7 MCH 30.0 MCHC 33.8 RDW 13.8 Plt Count 178 MPV 9.7 Sodium 141 Potassium 3.9 Chloride 107 Carbon Dioxide 29 Anion Gap 4 L BUN 18.1 H Creatinine 0.6 Est GFR (CKD-EPI)AfAm 115.63 Est GFR (CKD-EPI)NonAf 99.77 Random Glucose 103 Calcium 8.3 L Total Bilirubin 0.3 AST 14 L ALT 19 Alkaline Phosphatase 76 Total Protein 6.7 Albumin 3.6 Syphilis Serology Non-reactive COVID-19 (DELMIS) 08/21/20 14:00 WBC RBC Hgb Hct MCV MCH MCHC RDW Plt Count MPV Sodium Potassium Chloride Carbon Dioxide Anion Gap BUN Creatinine Est GFR (CKD-EPI)AfAm Est GFR (CKD-EPI)NonAf Random Glucose Calcium Total Bilirubin AST ALT Alkaline Phosphatase Total Protein Albumin Syphilis Serology COVID-19 (DELMIS) Not detected aaox3 ambulating no acute distress Assessment: 08/23/20 12:53 no s/s of withdrawals Plan: d/c today
--- NOTE | 2020-08-23 12:54 | DS ---
[facility] Detox Discharge Summary Admission Date: 08/21/20 Discharge Date: 08/23/20 - History Present History: Sedative Dependence, MMTP - Physical Exam Results Vital Signs: Vital Signs Temperature 97.7 F 08/23/20 09:01 Pulse Rate 71 08/23/20 09:01 Respiratory Rate 16 08/23/20 09:01 Blood Pressure 127/89 08/23/20 09:01 O2 Sat by Pulse Oximetry (%) 98 08/23/20 09:01 Pertinent Admission Physical Exam Findings: Vital Signs Temperature 97.7 F 08/23/20 09:01 Pulse Rate 71 08/23/20 09:01 Respiratory Rate 16 08/23/20 09:01 Blood Pressure 127/89 08/23/20 09:01 O2 Sat by Pulse Oximetry (%) 98 08/23/20 09:01 Laboratory Tests 08/21/20 08/21/20 08/21/20 13:00 13:00 13:00 WBC 5.3 RBC 4.33 Hgb 13.0 Hct 38.4 MCV 88.7 MCH 30.0 MCHC 33.8 RDW 13.8 Plt Count 178 MPV 9.7 Sodium 141 Potassium 3.9 Chloride 107 Carbon Dioxide 29 Anion Gap 4 L BUN 18.1 H Creatinine 0.6 Est GFR (CKD-EPI)AfAm 115.63 Est GFR (CKD-EPI)NonAf 99.77 Random Glucose 103 Calcium 8.3 L Total Bilirubin 0.3 AST 14 L ALT 19 Alkaline Phosphatase 76 Total Protein 6.7 Albumin 3.6 Syphilis Serology Non-reactive COVID-19 ([facility]LMIS) 08/21/20 14:00 WBC RBC Hgb Hct MCV MCH MCHC RDW Plt Count MPV Sodium Potassium Chloride Carbon Dioxide Anion Gap BUN Creatinine Est GFR (CKD-EPI)AfAm Est GFR (CKD-EPI)NonAf Random Glucose Calcium Total Bilirubin AST ALT Alkaline Phosphatase Total Protein Albumin Syphilis Serology COVID-19 ([facility]LMIS) Not detected aaox3 ambulating no acute distress lungs CTA - Treatment Hospital Course: Detox Protocol Followed, Detoxed Safely, Responded well, Discharged Condition Good, Rehab Referral Accepted - Medication Discharge Medications: Ambulatory Orders Albuterol Sulfate Inhaler - [Ventolin HFA Inhaler -] 2 inh IH Q4H PRN #1 cartridge 07/09/16 Budesonide/Formeterol Fumarate [SYMBICORT 160/4.5mcg -] 1 puff IH BID #1 cartridge 07/09/16 Famotidine [Pepcid -] 20 mg PO DAILY 02/03/20 Sertraline HCl [Zoloft -] 25 mg PO DAILY 02/03/20 - Diagnosis (1) Gait instability Current Visit: Yes Status: Acute (2) Methadone maintenance therapy patient Current Visit: Yes Status: Acute (3) Substance-induced sleep disorder Current Visit: Yes Status: Acute (4) Uncomplicated sedative, hypnotic, or anxiolytic withdrawal Current Visit: Yes Status: Acute (5) Anemia Current Visit: Yes Status: Chronic (6) Depression Current Visit: Yes Status: Chronic (7) GERD (gastroesophageal reflux disease) Current Visit: Yes Status: Chronic Qualifiers: Esophagitis presence: without esophagitis Qualified Code(s): K21.9 - Gastro-esophageal reflux disease without esophagitis (8) Nicotine dependence Current Visit: Yes Status: Chronic Qualifiers: Nicotine product type: cigarettes Substance use status: uncomplicated Qualified Code(s): F17.210 - Nicotine dependence, cigarettes, uncomplicated (9) Opioid dependence on agonist therapy Current Visit: Yes Status: Chronic (10) Afib Current Visit: Yes Status: Resolved (11) Drug-induced mood disorder Current Visit: No Status: Acute (12) Heroin use disorder, severe, dependence Current Visit: No Status: Acute (13) Schizoaffective disorder, unspecified Current Visit: No Status: Acute Qualifiers: Schizoaffective disorder type: unspecified Qualified Code(s): F25.9 - Schizoaffective disorder, unspecified (14) Bronchial asthma Current Visit: No Status: Chronic Qualifiers: Asthma severity: unspecified severity Asthma complication type: un complicated (15) Cannabis dependence Current Visit: No Status: Chronic (16) Cocaine dependence Current Visit: No Status: Chronic Qualifiers: Substance use status: uncomplicated Qualified Code(s): F14.20 - Cocaine dependence, uncomplicated (17) Hepatitis C carrier Current Visit: No Status: Chronic (18) Opioid dependence with withdrawal Current Visit: No Status: Chronic (19) Schizoaffective disorder Current Visit: No Status: Chronic - AMA Did Patient Leave Against Medical Advice: No
[2020-08-24] MEDS ORDERED: LORazepam 0.5 MG TABLET PO PRN
[2020-08-24] MEDS ORDERED: LORazepam 0.5 MG TABLET PO SCH (05:00)
[2020-08-25] MEDS ORDERED: LORazepam 0.5 MG TABLET PO ONE (05:00)
== END 2020-08-23 13:05 | disposition home or self-care (01) | DRG 897 ==
LOC: YASAS 11:56 → Y6N 13:58
PROVIDERS: ADMIT Allergy & Immunology; ATTEND Allergy & Immunology
DX: F13.230 Sedative, hypnotic or anxiolytic dependence with withdrawal, uncomplicated (principal); F11.20 Opioid dependence, uncomplicated; F14.20 Cocaine dependence, uncomplicated; F19.282 Other psychoactive substance dependence with psychoactive substance-induced sleep disorder; F12.20 Cannabis dependence, uncomplicated; F17.210 Nicotine dependence, cigarettes, uncomplicated; F19.24 Other psychoactive substance dependence with psychoactive substance-induced mood disorder; F32.9 Major depressive disorder, single episode, unspecified; F25.9 Schizoaffective disorder, unspecified; D64.9 Anemia, unspecified; K21.9 Gastro-esophageal reflux disease without esophagitis; R26.89 Other abnormalities of gait and mobility; B18.2 Chronic viral hepatitis C; Z86.79 Personal history of other diseases of the circulatory system; Z99.89 Dependence on other enabling machines and devices; Z88.0 Allergy status to penicillin
CPT/HCPCS: 36415; 80053; 85027; 86780; C9803; U0003

== ENCOUNTER 2021-03-15 10:07 | Inpatient (IN) | payer OTHER ==
[~2021-03-15 10:07] MED LIST: METHADONE HCL 10 MG TABLET (FOR DETOX USE ONLY) PO ONE
[2021-03-15 10:29] VITALS: BMI 31.8
[2021-03-15] MEDS ORDERED: MAGNESIUM HYDROX 2400MG/30ML ORAL SUSPENSION 30 ML CUP PO PRN (11:59)
[2021-03-15] MEDS ORDERED: ONDANSETRON *ODT* 4 MG TABLET SL PRN (11:59)
[2021-03-15] MEDS ORDERED: METHOCARBAMOL 500 MG TABLET PO PRN (11:59)
[2021-03-15] MEDS ORDERED: MAG HYDROX/AL HYDROX/SIMETH 30 ML UNIT-DOSE CUP PO PRN (11:59)
[2021-03-15] MEDS ORDERED: ACETAMINOPHEN 325 MG TABLET (FP) PO PRN ×2 (11:59)
[2021-03-15] MEDS ORDERED: cloNIDine HCL 0.1 MG TABLET PO PRN (11:59)
[2021-03-15] MEDS ORDERED: MENTHOL/PHENOL 1 EACH UD MM PRN (11:59)
[2021-03-15] MEDS ORDERED: MAGNESIUM CITRATE 300 ML BOTTLE PO PRN (11:59)
[2021-03-15] MEDS ORDERED: BISMUTH SUBSALICYLATE 524 MG/30 ML UD PO PRN (11:59)
[2021-03-15] MEDS ORDERED: IBUPROFEN 400 MG TABLET (FP) PO PRN (11:59)
[2021-03-15] MEDS ORDERED: ALBUTEROL SO4 HFA INHALER IH PRN (12:03)
[2021-03-15] MEDS: PRENATAL VITAMINS W/ FOLIC ACID TABLET (FP) PO SCH (13:29)
[2021-03-15] MEDS: hydrOXYzine PAMOATE 25 MG CAPSULE (FP) PO SCH ×4 (13:33→22:53)
[2021-03-15 14:44] LABS: HEMATOCRIT 36.4 % (32.4-45.2); HEMOGLOBIN 12.4 GM/dL (10.7-15.3); MEAN CELL VOLUME 88.2 fl (80-96); MEAN PLT VOLUME 9.8 fl (7.5-11.1); PLATELET COUNT 195 K/MM3 (134-434); RBC 4.12 M/mm3 (3.60-5.2); RDW 14.1 % (11.6-15.6); WHITE BLOOD COUNT 6.1 K/mm3 (4.0-10.0)
[2021-03-15 14:52] LABS: ALBUMIN 3.4 g/dl (3.4-5.0)
[2021-03-15 14:53] LABS: BLOOD UREA NITROGEN 20.8 mg/dL (7-18)
[2021-03-15 14:54] LABS: CREATININE 0.6 mg/dL (0.55-1.3)
[2021-03-15 14:55] LABS: BILIRUBIN,TOTAL 0.5 mg/dL (0.2-1); CALCIUM 8.6 mg/dL (8.5-10.1); TOT PROT 6.4 g/dl (6.4-8.2)
[2021-03-15 15:37] LABS: HIV INTERPRETATION NEGATIVE (NEGATIVE)
[2021-03-15] MEDS ORDERED: diazePAM 5 MG TABLET PO PRN (17:52)
[2021-03-15] MEDS ORDERED: diazePAM 5 MG TABLET PO ONE (17:52)
[2021-03-15] MEDS: THIAMINE HCL 100 MG TABLET (FP) PO SCH (22:51)
[2021-03-15] MEDS: MELATONIN 5 MG TABLETS PO SCH (22:51)
[2021-03-15] MEDS: diazePAM 5 MG TABLET PO SCH (22:52)
[2021-03-15] MEDS: BUDESONIDE/FORMETEROL FUMARATE 160/4.5 mcg INHALER IH SCH (22:53)
[2021-03-16] MEDS: diazePAM 5 MG TABLET PO SCH ×4 (06:11→22:33)
[2021-03-16] MEDS: hydrOXYzine PAMOATE 25 MG CAPSULE (FP) PO SCH ×5 (06:13→22:34)
[2021-03-16] MEDS ORDERED: PATIENT'S OWN MEDICATION (NON-FORMULARY) (Multivitamin [One-Daily Multi-Vitamin] 1 EACH Ta PO SCH (10:00)
[2021-03-16] MEDS ORDERED: BUDESONIDE/FORMETEROL FUMARATE 160/4.5 mcg INHALER IH SCH (10:00)
[2021-03-16] MEDS ORDERED: METHADONE HCL 10 MG TABLET (FOR DETOX USE ONLY) PO ONE (10:00)
[2021-03-16] MEDS: ASPIRIN 81 MG CHEWABLE TABLETS PO SCH (10:43)
[2021-03-16] MEDS: PRENATAL VITAMINS W/ FOLIC ACID TABLET (FP) PO SCH (10:44)
[2021-03-16] MEDS: BUDESONIDE/FORMETEROL FUMARATE 160/4.5 mcg INHALER IH SCH ×2 (10:44→22:34)
[2021-03-16] MEDS: THIAMINE HCL 100 MG TABLET (FP) PO SCH (22:34)
[2021-03-16] MEDS: MELATONIN 5 MG TABLETS PO SCH (22:35)
[2021-03-17] MEDS ORDERED: METHADONE HCL 5 MG TABLET (FOR DETOX USE ONLY) PO ONE (06:00)
[2021-03-17] MEDS: diazePAM 5 MG TABLET PO SCH ×3 (06:21→22:34)
[2021-03-17] MEDS: hydrOXYzine PAMOATE 25 MG CAPSULE (FP) PO SCH ×5 (07:21→22:34)
[2021-03-17] MEDS: ASPIRIN 81 MG CHEWABLE TABLETS PO SCH (10:42)
[2021-03-17] MEDS: PRENATAL VITAMINS W/ FOLIC ACID TABLET (FP) PO SCH (10:42)
[2021-03-17] MEDS: BUDESONIDE/FORMETEROL FUMARATE 160/4.5 mcg INHALER IH SCH ×2 (10:42→22:34)
[2021-03-17] MEDS: MELATONIN 5 MG TABLETS PO SCH (22:34)
[2021-03-17] MEDS: THIAMINE HCL 100 MG TABLET (FP) PO SCH (22:34)
[2021-03-18] MEDS ORDERED: diazePAM 5 MG TABLET PO SCH (06:00)
[2021-03-18 06:06] LABS: SARS-CoV-2 NAA Not Detected (Not Detected)
[2021-03-18 06:12] VITALS: TEMP 97.5
[2021-03-18] MEDS: hydrOXYzine PAMOATE 25 MG CAPSULE (FP) PO SCH ×2 (07:00→10:23)
[2021-03-18 09:27] VITALS: BP 148/102; PULSE 68
[2021-03-18] MEDS: BUDESONIDE/FORMETEROL FUMARATE 160/4.5 mcg INHALER IH SCH (10:23)
[2021-03-18] MEDS: PRENATAL VITAMINS W/ FOLIC ACID TABLET (FP) PO SCH (10:23)
[2021-03-18] MEDS: ASPIRIN 81 MG CHEWABLE TABLETS PO SCH (10:23)
[2021-03-19] MEDS ORDERED: diazePAM 5 MG TABLET PO ONE (06:00)
== END 2021-03-18 11:43 | disposition home or self-care (01) | DRG 897 ==
LOC: YASAS 10:07 → Y6N 12:16
PROVIDERS: ADMIT Allergy & Immunology; ATTEND Allergy & Immunology
PROC: HZ2ZZZZ Detoxification Services for Substance Abuse Treatment (ICD-10-PCS; principal; 2021-03-15)
DX: F11.23 Opioid dependence with withdrawal (principal); F13.230 Sedative, hypnotic or anxiolytic dependence with withdrawal, uncomplicated; F17.210 Nicotine dependence, cigarettes, uncomplicated; F25.9 Schizoaffective disorder, unspecified; F19.24 Other psychoactive substance dependence with psychoactive substance-induced mood disorder; J45.909 Unspecified asthma, uncomplicated; K21.9 Gastro-esophageal reflux disease without esophagitis; B18.2 Chronic viral hepatitis C; M54.5 Low back pain; M25.561 Pain in right knee; M25.562 Pain in left knee; E66.9 Obesity, unspecified; Z68.31 Body mass index [BMI] 31.0-31.9, adult; Z86.79 Personal history of other diseases of the circulatory system; Z99.89 Dependence on other enabling machines and devices; Z88.0 Allergy status to penicillin; Z88.8 Allergy status to other drugs, medicaments and biological substances
CPT/HCPCS: 36415; 80053; 84520; 85027; 86780; 87389; 93005; 93010; C9803; U0003; U0005

== ENCOUNTER 2021-06-24 17:11 | Inpatient (IN) | payer OTHER ==
[2021-06-24 18:58] VITALS: BMI 31.3
[2021-06-24] MEDS ORDERED: MENTHOL/PHENOL 1 EACH UD MM PRN (19:44)
[2021-06-24] MEDS ORDERED: ACETAMINOPHEN 325 MG TABLET (FP) PO PRN ×2 (19:44)
[2021-06-24] MEDS ORDERED: ONDANSETRON *ODT* 4 MG TABLET SL PRN (19:44)
[2021-06-24] MEDS ORDERED: IBUPROFEN 400 MG TABLET (FP) PO PRN (19:44)
[2021-06-24] MEDS ORDERED: METHOCARBAMOL 500 MG TABLET PO PRN (19:44)
[2021-06-24] MEDS ORDERED: MAGNESIUM CITRATE 300 ML BOTTLE PO PRN (19:44)
[2021-06-24] MEDS ORDERED: BISMUTH SUBSALICYLATE 524 MG/30 ML PO PRN (19:44)
[2021-06-24] MEDS ORDERED: MAGNESIUM HYDROX 2400MG/30ML ORAL SUSPENSION 30 ML CUP PO PRN (19:44)
[2021-06-24] MEDS ORDERED: MAG HYDROX/AL HYDROX/SIMETH 30 ML UNIT-DOSE CUP PO PRN (19:44)
[2021-06-24] MEDS ORDERED: ALBUTEROL SO4 HFA INHALER IH PRN (19:46)
[2021-06-24] MEDS ORDERED: clonazePAM 0.5 MG ODT TABLETS SL PRN (19:48)
[2021-06-24] MEDS ORDERED: methaDONE HCL 10 MG TABLET (FOR DETOX USE ONLY) PO ONE (19:48)
[2021-06-24] MEDS: cloNIDine HCL 0.1 MG TABLET PO PRN (21:06)
[2021-06-24] MEDS: THIAMINE HCL 100 MG TABLET (FP) PO SCH (21:06)
[2021-06-24] MEDS: BUDESONIDE/FORMETEROL FUMARATE 160/4.5 mcg INHALER IH SCH (21:08)
[2021-06-24] MEDS: MELATONIN 5 MG TABLETS PO SCH (21:15)
[2021-06-25] MEDS: PRENATAL VITAMINS W/ FOLIC ACID TABLET (FP) PO SCH (10:49)
[2021-06-25] MEDS: ASPIRIN 81 MG CHEWABLE TABLETS PO SCH (10:49)
[2021-06-25 10:50] LABS: HEMATOCRIT 38.9 % (32.4-45.2); HEMOGLOBIN 13.3 GM/dL (10.7-15.3); MCH 29.9 pg (25.7-33.7); MCHC 34.2 g/dl (32.0-36.0); MEAN CELL VOLUME 87.4 fl (80-96); MEAN PLT VOLUME 9.5 fl (7.5-11.1); PLATELET COUNT 187 10^3/uL (134-434); RBC 4.46 M/mm3 (3.60-5.2); RDW 13.9 % (11.6-15.6); WHITE BLOOD COUNT 4.9 K/mm3 (4.0-10.0)
[2021-06-25] MEDS: BUDESONIDE/FORMETEROL FUMARATE 160/4.5 mcg INHALER IH SCH ×2 (10:51→22:45)
[2021-06-25 10:53] LABS: CALCIUM 8.6 mg/dL (8.5-10.1)
[2021-06-25 10:55] LABS: ALBUMIN 3.2 g/dl (3.4-5.0); BLOOD UREA NITROGEN 18.8 mg/dL (7-18)
[2021-06-25 10:57] LABS: CREATININE 0.7 mg/dL (0.55-1.3)
[2021-06-25 11:03] LABS: BILIRUBIN,TOTAL 0.6 mg/dL (0.2-1)
[2021-06-25] MEDS: THIAMINE HCL 100 MG TABLET (FP) PO SCH (21:00)
[2021-06-25] MEDS: MELATONIN 5 MG TABLETS PO SCH (21:00)
[2021-06-25] MEDS: cloNIDine HCL 0.1 MG TABLET PO PRN (21:00)
[2021-06-26] MEDS: PRENATAL VITAMINS W/ FOLIC ACID TABLET (FP) PO SCH (09:33)
[2021-06-26] MEDS: BUDESONIDE/FORMETEROL FUMARATE 160/4.5 mcg INHALER IH SCH ×2 (09:34→23:19)
[2021-06-26] MEDS: ASPIRIN 81 MG CHEWABLE TABLETS PO SCH (09:34)
[2021-06-26] MEDS ORDERED: methaDONE HCL 10 MG TABLET (FOR DETOX USE ONLY) PO ONE (10:00)
[2021-06-26] MEDS: MELATONIN 5 MG TABLETS PO SCH (23:19)
[2021-06-26] MEDS: THIAMINE HCL 100 MG TABLET (FP) PO SCH (23:19)
[2021-06-27 08:52] VITALS: BP 120/79; PULSE 61; TEMP 98.1
== END 2021-06-27 09:39 | disposition home or self-care (01) | DRG 897 ==
LOC: YASAS 17:11 → Y3N 20:07
PROVIDERS: ADMIT Allergy & Immunology; ATTEND Allergy & Immunology
PROC: HZ2ZZZZ Detoxification Services for Substance Abuse Treatment (ICD-10-PCS; principal; 2021-06-24)
DX: F11.23 Opioid dependence with withdrawal (principal); F14.20 Cocaine dependence, uncomplicated; F19.282 Other psychoactive substance dependence with psychoactive substance-induced sleep disorder; F13.230 Sedative, hypnotic or anxiolytic dependence with withdrawal, uncomplicated; F12.20 Cannabis dependence, uncomplicated; F17.210 Nicotine dependence, cigarettes, uncomplicated; F25.9 Schizoaffective disorder, unspecified; F19.24 Other psychoactive substance dependence with psychoactive substance-induced mood disorder; F32.9 Major depressive disorder, single episode, unspecified; I48.91 Unspecified atrial fibrillation; D64.9 Anemia, unspecified; J45.909 Unspecified asthma, uncomplicated; K21.9 Gastro-esophageal reflux disease without esophagitis; B18.2 Chronic viral hepatitis C; G47.00 Insomnia, unspecified; E66.9 Obesity, unspecified; Z68.31 Body mass index [BMI] 31.0-31.9, adult; Z88.0 Allergy status to penicillin; Z88.6 Allergy status to analgesic agent; Z91.19 Patient's noncompliance with other medical treatment and regimen; Z56.0 Unemployment, unspecified
CPT/HCPCS: 36415; 80053; 81025; 85027; 86780; C9803; J0735; U0003; U0005

== ENCOUNTER 2021-09-04 11:57 | Inpatient (IN) | payer OTHER ==
[2021-09-04 13:10] VITALS: BMI 30.8
[2021-09-04] MEDS ORDERED: ONDANSETRON *ODT* 4 MG TABLET SL PRN (13:52)
[2021-09-04] MEDS ORDERED: BISMUTH SUBSALICYLATE 262 MG/15 ML BTL PO PRN (13:52)
[2021-09-04] MEDS ORDERED: MAGNESIUM HYDROX 2400MG/30ML ORAL SUSPENSION 30 ML CUP PO PRN (13:52)
[2021-09-04] MEDS ORDERED: cloNIDine HCL 0.1 MG TABLET PO PRN (13:52)
[2021-09-04] MEDS ORDERED: MAGNESIUM CITRATE 300 ML BOTTLE PO PRN (13:52)
[2021-09-04] MEDS ORDERED: MENTHOL/PHENOL 1 EACH UD MM PRN (13:52)
[2021-09-04] MEDS ORDERED: methaDONE HCL 10 MG TABLET (FOR DETOX USE ONLY) PO ONE (13:52)
[2021-09-04] MEDS ORDERED: ACETAMINOPHEN 325 MG TABLET (FP) PO PRN ×2 (13:52)
[2021-09-04] MEDS ORDERED: MAG HYDROX/AL HYDROX/SIMETH 30 ML UNIT-DOSE CUP PO PRN (13:52)
[2021-09-04] MEDS ORDERED: ALBUTEROL SO4 HFA INHALER IH PRN (13:54)
[2021-09-04] MEDS ORDERED: hydrOXYzine PAMOATE 25 MG CAPSULE (FP) PO SCH (14:00)
[2021-09-04] MEDS: PRENATAL VITAMINS W/ FOLIC ACID TABLET (FP) PO SCH (15:05)
[2021-09-04 17:24] LABS: HIV INTERPRETATION NEGATIVE (NEGATIVE)
[2021-09-04] MEDS: NICOTINE 10 MG CARTRIDGE (INHALER) IH PRN (18:27)
[2021-09-04] MEDS: MELATONIN 5 MG TABLETS PO SCH (21:30)
[2021-09-04] MEDS: THIAMINE HCL 100 MG TABLET (FP) PO SCH (21:31)
[2021-09-04] MEDS: IBUPROFEN 400 MG TABLET (FP) PO PRN (21:34)
[2021-09-04] MEDS: diazePAM 5 MG TABLET PO PRN (21:34)
[2021-09-04] MEDS: BUDESONIDE/FORMETEROL FUMARATE 160/4.5 mcg INHALER IH SCH (22:01)
[2021-09-05] MEDS ORDERED: methaDONE HCL 10 MG TABLET (FOR DETOX USE ONLY) ONE (09:41)
[2021-09-05] MEDS: METHOCARBAMOL 500 MG TABLET PO PRN (10:11)
[2021-09-05] MEDS: ASPIRIN 81 MG CHEWABLE TABLETS PO SCH (10:11)
[2021-09-05] MEDS: PRENATAL VITAMINS W/ FOLIC ACID TABLET (FP) PO SCH (10:11)
[2021-09-05] MEDS: BUDESONIDE/FORMETEROL FUMARATE 160/4.5 mcg INHALER IH SCH ×2 (10:14→21:55)
[2021-09-05 11:17] LABS: HEMATOCRIT 38.9 % (32.4-45.2); HEMOGLOBIN 13.2 GM/dL (10.7-15.3); MCH 29.9 pg (25.7-33.7); MCHC 33.9 g/dl (32.0-36.0); MEAN CELL VOLUME 88.3 fl (80-96); MEAN PLT VOLUME 10.6 fl (7.5-11.1); PLATELET COUNT 218 10^3/uL (134-434); RBC 4.41 M/mm3 (3.60-5.2); RDW 13.9 % (11.6-15.6); WHITE BLOOD COUNT 8.2 K/mm3 (4.0-10.0)
[2021-09-05 11:20] LABS: ALBUMIN 3.5 g/dl (3.4-5.0); CALCIUM 9.5 mg/dL (8.5-10.1)
[2021-09-05 11:21] LABS: BLOOD UREA NITROGEN 27.6 mg/dL (7-18)
[2021-09-05 11:24] LABS: CREATININE 0.9 mg/dL (0.55-1.3)
[2021-09-05 11:25] LABS: BILIRUBIN,TOTAL 0.3 mg/dL (0.2-1); TOT PROT 6.8 g/dl (6.4-8.2)
[2021-09-05] MEDS: diazePAM 5 MG TABLET PO PRN (19:31)
[2021-09-05] MEDS: THIAMINE HCL 100 MG TABLET (FP) PO SCH (21:55)
[2021-09-05] MEDS: MELATONIN 5 MG TABLETS PO SCH (21:55)
[2021-09-06] MEDS ORDERED: methaDONE HCL 10 MG TABLET (FOR DETOX USE ONLY) PO ONE (10:00)
[2021-09-06] MEDS: BUDESONIDE/FORMETEROL FUMARATE 160/4.5 mcg INHALER IH SCH ×2 (10:12→22:50)
[2021-09-06] MEDS: ASPIRIN 81 MG CHEWABLE TABLETS PO SCH (10:13)
[2021-09-06] MEDS: PRENATAL VITAMINS W/ FOLIC ACID TABLET (FP) PO SCH (10:13)
[2021-09-06] MEDS: METHOCARBAMOL 500 MG TABLET PO PRN ×2 (10:13→22:50)
[2021-09-06] MEDS: diazePAM 5 MG TABLET PO PRN ×2 (12:59→17:34)
[2021-09-06] MEDS: NICOTINE 10 MG CARTRIDGE (INHALER) IH PRN (17:34)
[2021-09-06] MEDS: IBUPROFEN 400 MG TABLET (FP) PO PRN (18:50)
[2021-09-06] MEDS: THIAMINE HCL 100 MG TABLET (FP) PO SCH (22:50)
[2021-09-06] MEDS: MELATONIN 5 MG TABLETS PO SCH ×2 (22:50→22:53)
[2021-09-07] MEDS ORDERED: methaDONE HCL 10 MG TABLET (FOR DETOX USE ONLY) ONE (09:03)
[2021-09-07] MEDS: METHOCARBAMOL 500 MG TABLET PO PRN (10:34)
[2021-09-07] MEDS: BUDESONIDE/FORMETEROL FUMARATE 160/4.5 mcg INHALER IH SCH ×2 (10:34→21:58)
[2021-09-07] MEDS: ASPIRIN 81 MG CHEWABLE TABLETS PO SCH (10:34)
[2021-09-07] MEDS: PRENATAL VITAMINS W/ FOLIC ACID TABLET (FP) PO SCH (10:36)
[2021-09-07] MEDS: diazePAM 5 MG TABLET PO PRN (11:37)
[2021-09-07] MEDS: MELATONIN 5 MG TABLETS PO SCH (21:58)
[2021-09-07] MEDS: THIAMINE HCL 100 MG TABLET (FP) PO SCH (21:58)
[2021-09-08] MEDS ORDERED: methaDONE HCL 10 MG TABLET (FOR DETOX USE ONLY) PO ONE (10:00)
[2021-09-08] MEDS: METHOCARBAMOL 500 MG TABLET PO PRN (10:13)
[2021-09-08] MEDS: ASPIRIN 81 MG CHEWABLE TABLETS PO SCH (10:13)
[2021-09-08] MEDS: PRENATAL VITAMINS W/ FOLIC ACID TABLET (FP) PO SCH (10:13)
[2021-09-08] MEDS ORDERED: amLODIPine BESYLATE 5 MG TABLET (FP) PO SCH (13:00)
[2021-09-08] MEDS: BUDESONIDE/FORMETEROL FUMARATE 160/4.5 mcg INHALER IH SCH ×2 (13:02→23:18)
[2021-09-08] MEDS: THIAMINE HCL 100 MG TABLET (FP) PO SCH (23:18)
[2021-09-08] MEDS: MELATONIN 5 MG TABLETS PO SCH (23:18)
[2021-09-09 07:00] VITALS: BP 157/97; PULSE 62; TEMP 97.3
== END 2021-09-09 09:15 | disposition home or self-care (01) | DRG 897 ==
LOC: YASAS 11:57 → Y6N 14:05
PROVIDERS: ADMIT Allergy & Immunology; ATTEND Allergy & Immunology
PROC: HZ2ZZZZ Detoxification Services for Substance Abuse Treatment (ICD-10-PCS; principal; 2021-09-04)
DX: F11.23 Opioid dependence with withdrawal (principal); F14.20 Cocaine dependence, uncomplicated; F12.20 Cannabis dependence, uncomplicated; F17.210 Nicotine dependence, cigarettes, uncomplicated; F25.9 Schizoaffective disorder, unspecified; B18.2 Chronic viral hepatitis C; D64.9 Anemia, unspecified; J45.909 Unspecified asthma, uncomplicated; K21.9 Gastro-esophageal reflux disease without esophagitis; R79.89 Other specified abnormal findings of blood chemistry; Z56.0 Unemployment, unspecified; Z59.00 Homelessness unspecified; Z98.890 Other specified postprocedural states
CPT/HCPCS: 36415; 80053; 82962; 85027; 86780; 87389; C9803; J0735; U0003; U0005

== ENCOUNTER 2022-01-22 13:45 | Inpatient (IN) | payer OTHER ==
[2022-01-22 15:33] VITALS: BMI 30.8
[2022-01-22] MEDS ORDERED: METHOCARBAMOL 500 MG TABLET PO PRN (17:56)
[2022-01-22] MEDS ORDERED: BISMUTH SUBSALICYLATE 524 MG/30 ML PO PRN (17:56)
[2022-01-22] MEDS ORDERED: NICOTINE 10 MG CARTRIDGE (INHALER) IH PRN (17:56)
[2022-01-22] MEDS ORDERED: LOPERAMIDE HCL 2 MG CAPSULE PO PRN (17:56)
[2022-01-22] MEDS ORDERED: MAG HYDROX/AL HYDROX/SIMETH 30 ML UNIT-DOSE CUP PO PRN (17:56)
[2022-01-22] MEDS ORDERED: MAGNESIUM HYDROX 2400MG/30ML ORAL SUSPENSION 30 ML CUP PO PRN (17:56)
[2022-01-22] MEDS ORDERED: ACETAMINOPHEN 325 MG TABLET (FP) PO PRN ×2 (17:56)
[2022-01-22] MEDS ORDERED: MAGNESIUM CITRATE 300 ML BOTTLE PO PRN (17:56)
[2022-01-22] MEDS ORDERED: ONDANSETRON *ODT* 4 MG TABLET SL PRN (17:56)
[2022-01-22] MEDS ORDERED: MENTHOL/PHENOL 1 EACH UD MM PRN (17:56)
[2022-01-22] MEDS ORDERED: IBUPROFEN 400 MG TABLET (FP) PO PRN (17:56)
[2022-01-22] MEDS ORDERED: diazePAM 5 MG TABLET PO PRN (17:58)
[2022-01-22] MEDS ORDERED: hydrOXYzine PAMOATE 25 MG CAPSULE (FP) PO SCH (18:00)
[2022-01-22] MEDS: MELATONIN 5 MG TABLETS PO SCH (22:45)
[2022-01-22] MEDS: THIAMINE HCL 100 MG TABLET (FP) PO SCH (22:45)
[2022-01-22] MEDS: diazePAM 5 MG TABLET PO SCH (22:47)
[2022-01-23] MEDS: diazePAM 5 MG TABLET PO SCH ×4 (07:32→23:31)
[2022-01-23] MEDS ORDERED: cloNIDine HCL 0.1 MG TABLET PO PRN (10:02)
[2022-01-23] MEDS ORDERED: hydrOXYzine PAMOATE 25 MG CAPSULE (FP) PO PRN (10:02)
[2022-01-23] MEDS: ASPIRIN 81 MG CHEWABLE TABLETS PO SCH (10:29)
[2022-01-23] MEDS: BUDESONIDE/FORMETEROL FUMARATE 160/4.5 mcg INHALER IH SCH ×2 (10:32→23:29)
[2022-01-23] MEDS: ALBUTEROL SO4 HFA INHALER IH SCH ×4 (10:32→23:28)
[2022-01-23] MEDS: PRENATAL VITAMINS W/ FOLIC ACID TABLET (FP) PO SCH (10:32)
[2022-01-23 13:01] LABS: HEMATOCRIT 40.6 % (32.4-45.2); HEMOGLOBIN 13.5 GM/dL (10.7-15.3); MCH 29.4 pg (25.7-33.7); MCHC 33.2 g/dl (32.0-36.0); MEAN CELL VOLUME 88.7 fl (80-96); MEAN PLT VOLUME 9.6 fl (7.5-11.1); PLATELET COUNT 175 10^3/uL (134-434); RBC 4.58 M/mm3 (3.60-5.2); RDW 13.4 % (11.6-15.6); WHITE BLOOD COUNT 4.7 K/mm3 (4.0-10.0)
[2022-01-23 13:43] LABS: CALCIUM 9.1 mg/dL (8.5-10.1)
[2022-01-23 13:44] LABS: ALBUMIN 3.3 g/dl (3.4-5.0); BLOOD UREA NITROGEN 15.6 mg/dL (7-18)
[2022-01-23 13:47] LABS: CREATININE 0.5 mg/dL (0.55-1.3)
[2022-01-23 13:48] LABS: TOT PROT 6.2 g/dl (6.4-8.2)
[2022-01-23 13:49] LABS: BILIRUBIN,TOTAL 0.5 mg/dL (0.2-1)
[2022-01-23] MEDS: MELATONIN 5 MG TABLETS PO SCH (23:29)
[2022-01-23] MEDS: THIAMINE HCL 100 MG TABLET (FP) PO SCH (23:29)
[2022-01-24] MEDS: ALBUTEROL SO4 HFA INHALER IH SCH ×3 (02:40→10:36)
[2022-01-24] MEDS ORDERED: diazePAM 5 MG TABLET PO SCH (06:00)
[2022-01-24 08:59] VITALS: BP 147/91; PULSE 62; TEMP 97.3
[2022-01-24] MEDS: PRENATAL VITAMINS W/ FOLIC ACID TABLET (FP) PO SCH (10:24)
[2022-01-24] MEDS: ASPIRIN 81 MG CHEWABLE TABLETS PO SCH (10:24)
[2022-01-24] MEDS: BUDESONIDE/FORMETEROL FUMARATE 160/4.5 mcg INHALER IH SCH (10:37)
[2022-01-24 14:08] LABS: SARS-CoV-2 NAA Not Detected (Not Detected)
[2022-01-25] MEDS ORDERED: diazePAM 5 MG TABLET PO SCH (06:00)
[2022-01-26] MEDS ORDERED: diazePAM 5 MG TABLET PO ONE (06:00)
== END 2022-01-24 11:22 | disposition left against medical advice (07) | DRG 894 ==
LOC: YASAS 13:45 → Y3N 18:27
PROVIDERS: ADMIT Allergy & Immunology; ATTEND Allergy & Immunology
PROC: HZ2ZZZZ Detoxification Services for Substance Abuse Treatment (ICD-10-PCS; principal; 2022-01-22)
DX: F13.230 Sedative, hypnotic or anxiolytic dependence with withdrawal, uncomplicated (principal); F11.20 Opioid dependence, uncomplicated; F12.20 Cannabis dependence, uncomplicated; F17.210 Nicotine dependence, cigarettes, uncomplicated; F25.9 Schizoaffective disorder, unspecified; J45.909 Unspecified asthma, uncomplicated; K21.9 Gastro-esophageal reflux disease without esophagitis; R26.89 Other abnormalities of gait and mobility; Z86.79 Personal history of other diseases of the circulatory system; Z88.0 Allergy status to penicillin; Z88.8 Allergy status to other drugs, medicaments and biological substances
CPT/HCPCS: 36415; 80053; 85027; 86780; C9803; J0735; U0003; U0005

== ENCOUNTER 2022-08-19 13:04 | Inpatient (IN) | payer OTHER ==
[2022-08-19] MEDS ORDERED: ALBUTEROL SO4 HFA INHALER IH PRN (18:54)
[2022-08-19] MEDS ORDERED: BISMUTH SUBSALICYLATE 524 MG/30 ML PO PRN (18:57)
[2022-08-19] MEDS ORDERED: NALOXONE HCL 0.4 MG/ML VIAL IM PRN (18:57)
[2022-08-19] MEDS ORDERED: IBUPROFEN 400 MG TABLET (FP) PO PRN (18:57)
[2022-08-19] MEDS ORDERED: guaiFENesin 200 MG/10 ML 10 ML UNIT-DOSE CUPS PO PRN (18:57)
[2022-08-19] MEDS ORDERED: ACETAMINOPHEN 325 MG TABLET (FP) PO PRN ×2 (18:57)
[2022-08-19] MEDS ORDERED: NICOTINE 10 MG CARTRIDGE (INHALER) IH PRN (18:57)
[2022-08-19] MEDS ORDERED: METHOCARBAMOL 500 MG TABLET PO PRN (18:57)
[2022-08-19] MEDS ORDERED: NALOXONE HCL (KLOXXADO) 8 MG SPRAY NS PRN (18:57)
[2022-08-19] MEDS ORDERED: MAG HYDROX/AL HYDROX/SIMETH 30 ML UNIT-DOSE CUP PO PRN (18:57)
[2022-08-19] MEDS ORDERED: MAGNESIUM HYDROX 2400MG/30ML ORAL SUSPENSION 30 ML CUP PO PRN (18:57)
[2022-08-19] MEDS ORDERED: P-EPHED 60MG/TRIPROLIDI 2.5MG TABLET PO PRN (18:57)
[2022-08-19] MEDS ORDERED: IBUPROFEN 600 MG TABLET (FP) PO PRN (18:57)
[2022-08-19] MEDS ORDERED: DICYCLOMINE HCL 10 MG CAPSULE PO PRN (18:57)
[2022-08-19] MEDS ORDERED: MAGNESIUM CITRATE 300 ML BOTTLE PO PRN (18:57)
[2022-08-19] MEDS ORDERED: ONDANSETRON *ODT* 4 MG TABLET SL PRN (18:57)
[2022-08-19] MEDS ORDERED: LOPERAMIDE HCL 2 MG CAPSULE PO PRN (18:57)
[2022-08-19] MEDS ORDERED: BENZOCAINE/MENTHOL (CHLORASEPTIC ) LOZENGE MM PRN (18:57)
[2022-08-19] MEDS ORDERED: diazePAM 5 MG TABLET PO PRN (19:00)
[2022-08-19] MEDS: diazePAM 5 MG TABLET PO PRN (19:41)
[2022-08-19] MEDS: MELATONIN 5 MG TABLETS PO SCH (22:29)
[2022-08-19] MEDS: diazePAM 5 MG TABLET PO SCH (22:30)
[2022-08-19] MEDS: BUDESONIDE/FORMETEROL FUMARATE 160/4.5 mcg INHALER IH SCH (22:30)
[2022-08-19] MEDS: THIAMINE HCL 100 MG TABLET (FP) PO SCH (22:30)
[2022-08-20] MEDS: diazePAM 5 MG TABLET PO SCH ×4 (06:05→22:11)
[2022-08-20] MEDS: ASPIRIN 81 MG CHEWABLE TABLETS PO SCH (10:39)
[2022-08-20] MEDS: BUDESONIDE/FORMETEROL FUMARATE 160/4.5 mcg INHALER IH SCH ×3 (10:39→22:11)
[2022-08-20] MEDS: PRENATAL VITAMINS W/ FOLIC ACID TABLET (FP) PO SCH (10:39)
[2022-08-20] MEDS: methaDONE HCL 10 MG TABLET PO SCH (10:39)
[2022-08-20 11:06] VITALS: RESP 18
[2022-08-20] MEDS ORDERED: valACYclovir HCL 500 MG TABLET (FP) PO ONE (11:20)
[2022-08-20 15:20] LABS: HEMATOCRIT 40.5 % (32.4-45.2); MCH 28.8 pg (25.7-33.7); MCHC 32.2 g/dl (32.0-36.0); MEAN CELL VOLUME 89.4 fl (80-96); PLATELET COUNT 196 10^3/uL (134-434); RBC 4.53 M/mm3 (3.60-5.2); RDW 14.1 % (11.6-15.6); WHITE BLOOD COUNT 6.3 K/mm3 (4.0-10.0)
[2022-08-20 15:26] LABS: CALCIUM 8.8 mg/dL (8.5-10.1)
[2022-08-20 15:27] LABS: ALBUMIN 3.1 g/dl (3.4-5.0); BLOOD UREA NITROGEN 16.5 mg/dL (7-18)
[2022-08-20 15:30] LABS: CREATININE 0.5 mg/dL (0.55-1.3)
[2022-08-20 15:31] LABS: BILIRUBIN,TOTAL 0.5 mg/dL (0.2-1); TOT PROT 5.9 g/dl (6.4-8.2)
[2022-08-20] MEDS: MELATONIN 5 MG TABLETS PO SCH (22:11)
[2022-08-20] MEDS: THIAMINE HCL 100 MG TABLET (FP) PO SCH (22:11)
[2022-08-21] MEDS: methaDONE HCL 10 MG TABLET PO SCH (05:50)
[2022-08-21] MEDS ORDERED: diazePAM 5 MG TABLET PO SCH (06:00)
[2022-08-21] MEDS: ASPIRIN 81 MG CHEWABLE TABLETS PO SCH (10:44)
[2022-08-21] MEDS: PRENATAL VITAMINS W/ FOLIC ACID TABLET (FP) PO SCH (10:44)
[2022-08-21] MEDS: diazePAM 5 MG TABLET PO PRN (10:45)
[2022-08-21] MEDS: BUDESONIDE/FORMETEROL FUMARATE 160/4.5 mcg INHALER IH SCH (10:48)
[2022-08-21 12:34] VITALS: BP 134/84; PULSE 64; TEMP 97.8
[2022-08-22] MEDS ORDERED: diazePAM 5 MG TABLET PO ONE (06:00)
== END 2022-08-21 16:38 | disposition home or self-care (01) | DRG 897 ==
LOC: YASAS 13:04 → Y3N 18:57
PROVIDERS: ADMIT Allergy & Immunology; ATTEND Surgery
PROC: HZ2ZZZZ Detoxification Services for Substance Abuse Treatment (ICD-10-PCS; principal; 2022-08-19)
DX: F11.23 Opioid dependence with withdrawal (principal); F13.230 Sedative, hypnotic or anxiolytic dependence with withdrawal, uncomplicated; F17.210 Nicotine dependence, cigarettes, uncomplicated; F25.9 Schizoaffective disorder, unspecified; J45.909 Unspecified asthma, uncomplicated; K21.9 Gastro-esophageal reflux disease without esophagitis; Z87.42 Personal history of other diseases of the female genital tract; Z86.19 Personal history of other infectious and parasitic diseases; Z86.79 Personal history of other diseases of the circulatory system; Z88.0 Allergy status to penicillin
CPT/HCPCS: 36415; 80053; 85027; 86780; C9803-CS; U0003; U0005

== ENCOUNTER 2024-12-03 15:43 | Inpatient (IN) | payer OTHER ==
[2024-12-03 16:26] VITALS: BMI 26.5
[2024-12-03] MEDS ORDERED: MAGNESIUM HYDROX 2400MG/30ML ORAL SUSPENSION 30 ML CUP PO PRN (16:45)
[2024-12-03] MEDS ORDERED: ONDANSETRON *ODT* 4 MG TABLET SL PRN (16:45)
[2024-12-03] MEDS ORDERED: LOPERAMIDE HCL 2 MG CAPSULE PO PRN (16:45)
[2024-12-03] MEDS ORDERED: NALOXONE (NARCAN) HCL 4 MG/0.1 ML SPRAY NS PRN (16:45)
[2024-12-03] MEDS ORDERED: IBUPROFEN 400 MG TABLET (FP) PO PRN (16:45)
[2024-12-03] MEDS ORDERED: POLYETHYLENE GLYCOL (HEALTHYLAX) 3350 17 GM PACKET PO PRN (16:45)
[2024-12-03] MEDS ORDERED: MAG HYDROX/AL HYDROX/SIMETH 30 ML UNIT-DOSE CUP PO PRN (16:45)
[2024-12-03] MEDS ORDERED: NICOTINE POLACRILEX 2 MG LOZENGE BC PRN (16:45)
[2024-12-03] MEDS ORDERED: ACETAMINOPHEN 325 MG TABLET (FP) PO PRN (16:45)
[2024-12-03] MEDS ORDERED: guaiFENesin 600 MG TABLET.ER (FP) PO PRN (16:45)
[2024-12-03] MEDS ORDERED: BENZONATATE 200 MG CAPSULE PO PRN (16:45)
[2024-12-03] MEDS ORDERED: NICOTINE POLACRILEX 2 MG GUM BUC PRN (16:45)
[2024-12-03] MEDS ORDERED: DICYCLOMINE HCL 10 MG CAPSULE PO PRN (16:45)
[2024-12-03] MEDS ORDERED: BENZOCAINE/MENTHOL (CHLORASEPTIC ) LOZENGE MM PRN (16:45)
[2024-12-03] MEDS ORDERED: P-EPHED 60MG/TRIPROLIDI 2.5MG TABLET PO PRN (16:45)
[2024-12-03] MEDS ORDERED: BISMUTH SUBSALICYLATE 524 MG/30 ML PO PRN (16:45)
[2024-12-03] MEDS ORDERED: diazePAM 5 MG TABLET ONE (17:28)
[2024-12-03] MEDS: diazePAM 5 MG TABLET PO SCH (17:31)
[2024-12-03] MEDS ORDERED: ALBUTEROL SO4 0.083% IH SOL 2.5 MG/3 ML VIAL.NEB. NEB PRN (17:47)
[2024-12-03] MEDS ORDERED: ALBUTEROL SO4 HFA INHALER IH PRN (17:48)
[2024-12-03] MEDS: IBUPROFEN 600 MG TABLET (FP) PO PRN (19:37)
[2024-12-03] MEDS: ASPIRIN 81 MG CHEWABLE TABLETS PO SCH (19:38)
[2024-12-03] MEDS: MELATONIN 5 MG TABLETS PO SCH (22:16)
[2024-12-03] MEDS: THIAMINE 100 MG TABLET PO SCH (22:16)
[2024-12-03] MEDS: BUDESONIDE/FORMETEROL FUMARATE 160/4.5 mcg INHALER IH SCH (22:17)
[2024-12-03] MEDS: METHOCARBAMOL 500 MG TABLET PO PRN (22:18)
[2024-12-04] MEDS ORDERED: diazePAM 5 MG TABLET ONE (00:32)
[2024-12-04] MEDS: diazePAM 5 MG TABLET PO SCH (06:09)
[2024-12-04 09:36] LABS: CHLORIDE 107 mmol/L (98-107); HEMATOCRIT 40.9 % (32.4-45.2); HEMOGLOBIN 13.2 GM/dL (10.7-15.3); MCH 29.5 pg (25.7-33.7); MCHC 32.3 g/dl (32.0-36.0); MEAN CELL VOLUME 91.4 fl (80-96); MEAN PLT VOLUME 10.3 fl (7.5-11.1); PLATELET COUNT 162 10^3/uL (134-434); POTASSIUM 3.7 mmol/L (3.5-5.1); RBC 4.48 M/mm3 (3.60-5.2); SODIUM 140 mmol/L (136-145); WHITE BLOOD COUNT 5.9 K/mm3 (4.0-10.0)
[2024-12-04 09:43] LABS: ANION GAP 4 mmol/L (4-13); CO2 29 mmol/L (21-32); GLUCOSE,RANDOM 99 mg/dL (74-106)
[2024-12-04 09:44] LABS: CALCIUM 9.1 mg/dL (8.5-10.1)
[2024-12-04 09:45] LABS: ALBUMIN 3.2 g/dl (3.4-5.0)
[2024-12-04 09:47] LABS: CREATININE 0.5 mg/dL (0.55-1.3); SGOT/AST 12 U/L (15-37); SGPT/ALT 18 U/L (13-61)
[2024-12-04 09:49] LABS: ALK PHOS 75 U/L (45-117)
[2024-12-04 09:50] LABS: BILIRUBIN,TOTAL 0.5 mg/dL (0.2-1)
[2024-12-04] MEDS: methaDONE HCL 10 MG TABLET PO ONE (10:57)
[2024-12-04] MEDS: PRENATAL VITAMINS W/ FOLIC ACID TABLET (FP) PO SCH (11:01)
[2024-12-04] MEDS: diazePAM 5 MG TABLET PO PRN (18:20)
[2024-12-05] MEDS: diazePAM 5 MG TABLET PO SCH (05:33)
[2024-12-05] MEDS ORDERED: methaDONE HCL 10 MG TABLET PO SCH (06:00)
[2024-12-05] MEDS: NALOXONE (NYS OPIOID OVERDOSE PROGRAM) 4 MG/0.1 ML SPRAY NS SCH (12:37)
[2024-12-05] MEDS: ARTIFICIAL TEARS OPHTHALMIC DROPS OU SCH (14:25)
[2024-12-06] MEDS: diazePAM 5 MG TABLET PO ONE (05:48)
[2024-12-06] MEDS ORDERED: ARTIFICIAL TEARS OPHTHALMIC DROPS OU PRN (17:42)
[2024-12-07 09:30] VITALS: RESP 16
[2024-12-07 13:05] VITALS: BP 131/88; PULSE 64; TEMP 97.7
== END 2024-12-07 13:43 | disposition other institution (70) | DRG 897 ==
LOC: YASAS 15:43 → Y6N 17:20
PROVIDERS: ADMIT Allergy & Immunology; ATTEND Allergy & Immunology
PROC: HZ2ZZZZ Detoxification Services for Substance Abuse Treatment (ICD-10-PCS; principal; 2024-12-03)
DX: F10.230 Alcohol dependence with withdrawal, uncomplicated (principal); F11.20 Opioid dependence, uncomplicated; F14.20 Cocaine dependence, uncomplicated; F19.280 Other psychoactive substance dependence with psychoactive substance-induced anxiety disorder; F19.282 Other psychoactive substance dependence with psychoactive substance-induced sleep disorder; F12.20 Cannabis dependence, uncomplicated; F17.210 Nicotine dependence, cigarettes, uncomplicated; F19.24 Other psychoactive substance dependence with psychoactive substance-induced mood disorder; F25.9 Schizoaffective disorder, unspecified; B18.2 Chronic viral hepatitis C; J45.20 Mild intermittent asthma, uncomplicated; Z62.810 Personal history of physical and sexual abuse in childhood; Z91.410 Personal history of adult physical and sexual abuse; Z63.0 Problems in relationship with spouse or partner; Z63.8 Other specified problems related to primary support group; Z88.0 Allergy status to penicillin; Z88.8 Allergy status to other drugs, medicaments and biological substances
CPT/HCPCS: 36415; 80053; 80305; 80307; 81025; 85027; 86780; 87811; 93005; 93010

== ENCOUNTER 2024-12-07 13:56 | Inpatient (IN) | payer OTHER ==
[~2024-12-07 13:56] MED LIST changes: +ACETAMINOPHEN 325 MG TABLET (FP) PO PRN; +ALBUTEROL SO4 HFA INHALER IH PRN; +BENZONATATE 200 MG CAPSULE PO PRN; +IBUPROFEN 400 MG TABLET (FP) PO PRN; +LOPERAMIDE HCL 2 MG CAPSULE PO PRN; +MAG HYDROX/AL HYDROX/SIMETH 30 ML UNIT-DOSE CUP PO PRN; +MAGNESIUM HYDROX 2400MG/30ML ORAL SUSPENSION 30 ML CUP PO PRN; -METHADONE HCL 10 MG TABLET (FOR DETOX USE ONLY) PO ONE; +NALOXONE (NARCAN) HCL 4 MG/0.1 ML SPRAY NS PRN; +NICOTINE POLACRILEX 2 MG GUM BUC PRN; +NICOTINE POLACRILEX 2 MG LOZENGE BC PRN; +POLYETHYLENE GLYCOL (HEALTHYLAX) 3350 17 GM PACKET PO PRN
[2024-12-07] MEDS: IBUPROFEN 600 MG TABLET (FP) PO PRN (20:36)
[2024-12-07] MEDS: MELATONIN 5 MG TABLETS PO SCH (22:26)
[2024-12-07] MEDS: THIAMINE 100 MG TABLET PO SCH (22:27)
[2024-12-07] MEDS: BUDESONIDE/FORMETEROL FUMARATE 160/4.5 mcg INHALER IH SCH (22:28)
[2024-12-08] MEDS: NALOXONE (NYS OPIOID OVERDOSE PROGRAM) 4 MG/0.1 ML SPRAY NS PRN (04:46)
[2024-12-08 06:42] VITALS: BP 140/79; PULSE 72; RESP 16; TEMP 97.7
[2024-12-08] MEDS: BENZOCAINE/MENTHOL (CHLORASEPTIC ) LOZENGE MM PRN (08:44)
[2024-12-08] MEDS: guaiFENesin 600 MG TABLET.ER (FP) PO PRN (08:45)
[2024-12-08] MEDS: PRENATAL VITAMINS W/ FOLIC ACID TABLET (FP) PO SCH (10:16)
[2024-12-08] MEDS: ASPIRIN 81 MG CHEWABLE TABLETS PO SCH (10:19)
== END 2024-12-08 04:39 | disposition home or self-care (01) | DRG 895 ==
LOC: YASAS 13:56 → Y3NR 13:57
PROVIDERS: ADMIT Allergy & Immunology; ATTEND Psychiatry & Neurology Pain Medicine
PROC: HZ42ZZZ Group Counseling for Substance Abuse Treatment, Cognitive-Behavioral (ICD-10-PCS; principal; 2024-12-07)
DX: F10.20 Alcohol dependence, uncomplicated (principal); F11.20 Opioid dependence, uncomplicated; F14.20 Cocaine dependence, uncomplicated; F19.282 Other psychoactive substance dependence with psychoactive substance-induced sleep disorder; F19.280 Other psychoactive substance dependence with psychoactive substance-induced anxiety disorder; F17.210 Nicotine dependence, cigarettes, uncomplicated; F19.24 Other psychoactive substance dependence with psychoactive substance-induced mood disorder; F25.9 Schizoaffective disorder, unspecified; F41.9 Anxiety disorder, unspecified; I10 Essential (primary) hypertension; J45.20 Mild intermittent asthma, uncomplicated; K21.9 Gastro-esophageal reflux disease without esophagitis; Z86.19 Personal history of other infectious and parasitic diseases; Z88.0 Allergy status to penicillin; Z88.8 Allergy status to other drugs, medicaments and biological substances

== ENCOUNTER 2025-02-17 18:59 | Inpatient (IN) | payer OTHER ==
[2025-02-17 19:29] VITALS: BMI 28.3
[2025-02-17] MEDS ORDERED: MAGNESIUM HYDROX 2400MG/30ML ORAL SUSPENSION 30 ML CUP PO PRN (19:55)
[2025-02-17] MEDS ORDERED: guaiFENesin 600 MG TABLET.ER (FP) PO PRN (19:55)
[2025-02-17] MEDS ORDERED: DOCUSATE SODIUM 100 MG CAPSULE (FP) PO PRN (19:55)
[2025-02-17] MEDS ORDERED: NICOTINE POLACRILEX 2 MG LOZENGE BC PRN (19:55)
[2025-02-17] MEDS ORDERED: NALOXONE (NARCAN) HCL 4 MG/0.1 ML SPRAY NS PRN (19:55)
[2025-02-17] MEDS ORDERED: ACETAMINOPHEN 325 MG TABLET (FP) PO PRN (19:55)
[2025-02-17] MEDS ORDERED: P-EPHED 60MG/TRIPROLIDI 2.5MG TABLET PO PRN (19:55)
[2025-02-17] MEDS ORDERED: BENZOCAINE/MENTHOL (CHLORASEPTIC ) LOZENGE MM PRN (19:55)
[2025-02-17] MEDS ORDERED: BENZONATATE 200 MG CAPSULE PO PRN (19:55)
[2025-02-17] MEDS ORDERED: LOPERAMIDE HCL 2 MG CAPSULE PO PRN (19:55)
[2025-02-17] MEDS ORDERED: NICOTINE POLACRILEX 2 MG GUM BUC PRN (19:55)
[2025-02-17] MEDS ORDERED: POLYETHYLENE GLYCOL (HEALTHYLAX) 3350 17 GM PACKET PO PRN (19:55)
[2025-02-17] MEDS ORDERED: MAG HYDROX/AL HYDROX/SIMETH 30 ML UNIT-DOSE CUP PO PRN (19:55)
[2025-02-17] MEDS ORDERED: IBUPROFEN 400 MG TABLET (FP) PO PRN (19:55)
[2025-02-17] MEDS ORDERED: hydrOXYzine PAMOATE 50 MG CAPSULE (FP) PO ONE (21:41)
[2025-02-17] MEDS ORDERED: IBUPROFEN 600 MG TABLET (FP) PO ONE (22:56)
[2025-02-17] MEDS: THIAMINE 100 MG TABLET PO SCH (23:03)
[2025-02-17] MEDS: MELATONIN 5 MG TABLETS PO SCH (23:03)
[2025-02-17] MEDS: IBUPROFEN 600 MG TABLET (FP) PO PRN (23:04)
[2025-02-18] MEDS: busPIRone HCL 5 MG TABLET PO ONE (00:14)
[2025-02-18] MEDS ORDERED: methaDONE HCL 10 MG TABLET PO ONE (06:00)
[2025-02-18] MEDS: METHOCARBAMOL 500 MG TABLET PO PRN (07:13)
[2025-02-18] MEDS: ASPIRIN 81 MG CHEWABLE TABLETS PO SCH (10:21)
[2025-02-18] MEDS: PRENATAL VITAMINS W/ FOLIC ACID TABLET (FP) PO SCH (10:21)
[2025-02-18] MEDS: ESCITALOPRAM OXALATE 10 MG TABLET PO SCH (10:24)
[2025-02-18] MEDS: BUDESONIDE/FORMETEROL FUMARATE 160/4.5 mcg INHALER IH SCH (10:24)
[2025-02-18 13:25] LABS: HEMATOCRIT 42.1 % (34.1-44.9); HEMOGLOBIN 13.5 g/dL (11.2-15.7); MCHC 32.1 g/dl (32.2-35.5); MEAN CELL VOLUME 92.1 fl (79.4-94.8); PLATELET COUNT 180 x10^3/uL (182-369); RDW 13.5 % (12.4-16.4)
[2025-02-18 13:37] LABS: CHLORIDE 104 mmol/L (98-107); POTASSIUM 4.2 mmol/L (3.5-5.1); SODIUM 141 mmol/L (136-145)
[2025-02-18 13:39] LABS: ALBUMIN 3.5 g/dl (3.4-5.0); ANION GAP 7 mmol/L (4-13); BLOOD UREA NITROGEN 14.4 mg/dL (7-18); CALCIUM 9.2 mg/dL (8.5-10.1); CO2 30 mmol/L (21-32); GLUCOSE,RANDOM 104 mg/dL (74-106)
[2025-02-18] MEDS: risperiDONE 1 MG TABLET PO SCH (13:40)
[2025-02-18 13:42] LABS: CREATININE 0.6 mg/dL (0.55-1.3); SGOT/AST 16 U/L (15-37); SGPT/ALT 19 U/L (13-61)
[2025-02-18 13:44] LABS: BILIRUBIN,TOTAL 0.4 mg/dL (0.2-1); TOT PROT 6.3 g/dl (6.4-8.2)
[2025-02-18 13:45] LABS: ALK PHOS 81 U/L (45-117)
[2025-02-18] MEDS: ALBUTEROL SO4 HFA INHALER IH PRN (21:07)
[2025-02-19] MEDS ORDERED: methaDONE HCL 10 MG TABLET PO ONE (08:58)
[2025-02-19 09:38] LABS: PH,URINE 7.5 (5.0-8.0); URINE APPEARANCE CLEAR; URINE BILIRUBIN NEGATIVE (NEGATIVE); URINE COLOR YELLOW; URINE GLUCOSE (UA) NEGATIVE (NEGATIVE); URINE KETONE NEGATIVE (NEGATIVE); URINE LEUK ESTERASE NEGATIVE (NEGATIVE); URINE NITRITE NEGATIVE (NEGATIVE); URINE PROTEIN NEGATIVE (NEGATIVE); URINE UROBILINOGEN 0.2 mg/dL (0.2-1.0)
[2025-02-20 07:03] VITALS: PULSE 65; RESP 16; TEMP 97.1
[2025-02-20] MEDS: methaDONE HCL 10 MG TABLET PO ONE (07:49)
[2025-02-20 07:52] VITALS: BP 135/89
[2025-02-20] MEDS ORDERED: ARTIFICIAL TEARS OPHTHALMIC DROPS OU PRN (12:07)
[2025-02-21] MEDS ORDERED: methaDONE HCL 10 MG TABLET PO SCH (06:00)
== END 2025-02-20 15:50 | disposition left against medical advice (07) | DRG 894 ==
LOC: YASAS 18:59 → Y3NR 22:20 → Y5N 02-18 19:55
PROVIDERS: ADMIT Psychiatry & Neurology Pain Medicine; ATTEND Psychiatry & Neurology Pain Medicine
PROC: HZ42ZZZ Group Counseling for Substance Abuse Treatment, Cognitive-Behavioral (ICD-10-PCS; principal; 2025-02-17)
DX: F14.20 Cocaine dependence, uncomplicated (principal); F11.20 Opioid dependence, uncomplicated; F19.282 Other psychoactive substance dependence with psychoactive substance-induced sleep disorder; F19.280 Other psychoactive substance dependence with psychoactive substance-induced anxiety disorder; F17.210 Nicotine dependence, cigarettes, uncomplicated; F25.9 Schizoaffective disorder, unspecified; F19.24 Other psychoactive substance dependence with psychoactive substance-induced mood disorder; F41.9 Anxiety disorder, unspecified; I10 Essential (primary) hypertension; J45.909 Unspecified asthma, uncomplicated; K21.9 Gastro-esophageal reflux disease without esophagitis
CPT/HCPCS: 36415; 80053; 80305; 80307; 81003; 81025; 85027; 86780